=== PATIENT | female | born 1955 | race Caucasian/White ===

== ENCOUNTER → 2017-06-21 09:13 | Outpatient (REF) | payer MEDICAID, SELFPAY ==
[2017-06-21 14:00] LABS: Amphetamine/Metha Screen,Urine Negative ng/mL (<1000); Barbiturates Screen,Urine Negative ng/mL (<200); Benzodiazepines Screen,Urine Positive ng/mL (200); Cannabinoid Screen,Urine Negative ng/mL (<50); Cocaine Screen,Urine Negative ng/g (<300); Methadone Screen,Urine Negative ng/mL (<300); Opiate Screen,Urine Negative ng/mL (<300); Phencyclidine Screen,Urine Negative ng/mL (<25)
== END ==
LOC: LAB 09:13
PROVIDERS: Visit Provider Emergency Medicine
DX: Z79.899 Other long term (current) drug therapy (principal)
CPT/HCPCS: 80305

== ENCOUNTER 2017-07-26 08:38 | Emergency (ER) | payer MEDICAID, SELFPAY ==
[2017-07-26 09:06] VITALS: BP 131/79; PULSE 90; RESP 18; TEMP 36.6; O2SAT 97; BMI 31.1
--- NOTE | 2017-07-26 09:09 | HMH.EDUTC ---
[facility] [place] Disposition Clinical Impression: Sinusitis Qualifiers: Sinusitis location: other Chronicity: unspecified Qualified Code(s): J32.9 - Chronic sinusitis, unspecified Disposition: Home, Self-Care Condition on Discharge: Good Instructions: Sinusitis, Sinus Headache, DI for Sinusitis Additional Instructions: Start antibiotic. Sinus infections may take 2-3 days to notice much improvement so be sure to use conservative measures as discussed for symptoms Flonase 2 spray in each nostril daily to help with nasal congestion, sinus an ear pressure/inflammation Lots of Fluids Sleep elevated Humidifer/vaporizer Augmentin can cause GI effects. Probiotics may help to prevent these symptoms Prescriptions: Amoxicillin/Potassium Clav [Augmentin 875-125 Tablet] 1 tab PO Q12H #14 tab Fluticasone Propionate [Flonase 50mcg nasal spray 16gm] 2 spr NS DAILY #1 bottle predniSONE [Prednisone 5mg Tab Dose-Pack] 5 mg PO UD DOSE PK #21 pack Referrals: Dylan Montiel MD [Primary Care Provider] - Time of Disposition: 09:24 Medical Decision Making - Medical Records Medical records reviewed: Yes: I reviewed the patient's medical records. Vital Signs: 07/26/17 09:06 Temperature 97.8 F Temperature Source Temporal Artery Scan Pulse Rate [Right] 90 Respiratory Rate 18 Blood Pressure [Right Arm] 131/79 Blood Pressure Mean [Right Arm] 96 Blood Pressure Source [Right Arm] Automatic Cuff Blood Pressure Position [Right Arm] Sitting 02 Sat by Pulse Oximetry 97 Oxygen Delivery Method Room Air - Lab Data Lab results reviewed: Yes: I reviewed the patient's lab results. - Kris Inquiry Pt receiving controlled substance: No Kris was queried for this patient: No [facility] [place] HPI - General Stated complaint: head congested,sinus Mode of Arrival: Ambulatory Source of Information: Patient Limitations: No Limitations Description of Symptoms (Recalled from Triage Doc. by RN): sinus congestion x3 days HEENT Symptoms (Recalled from RN notes): Yes Resp Symptoms (Recalled from RN notes): No Skin Symptoms (Recalled from RN notes): No MS Symptoms (Recalled from RN notes): No Functional Status (Recalled from RN notes): N - History of Present Illness Provider Complaint: Patient state that she has been having sinus issues for 3 days that have continued to get worse State that pressure is worse on the left side and even making her teeth hurt State that she has drainage down the back of her throat and feels tender under her eyes States that she has felt feverish but not sure if she has had a fever or not - Related Data Home Medications Medication Instructions Recorded Confirmed atorvastatin 10 mg tablet 10 mg PO ONCE 06/21/17 cetirizine 10 mg tablet 10 mg PO ONCE 06/21/17 ergocalciferol (vitamin D2) 50,000 50,000 unit PO QWEEK 06/21/17 unit capsule escitalopram 10 mg tablet 10 mg PO ONCE 06/21/17 fluticasone 100 mcg-vilanterol 25 1 inh INHALATION Q24H 06/21/17 mcg/dose powder for inhalation fluticasone 50 mcg/actuation 1 inh INHALATION ONCE each 06/21/17 blister powder for inhalation lisinopril 5 mg tablet 5 mg PO ONCE 06/21/17 Tramadol HCl [Ultram Take Home 50 mg PO Q8H 07/26/17 07/26/17 Pack 50mg (10)] Previous Rx's Medication Instructions Recorded alprazolam 0.5 mg tablet 0.5 mg PO BID 30 Days #60 tab 06/21/17 temazepam 30 mg capsule 30 mg PO ONCE 30 Days #30 cap 06/25/17 Amoxicillin/Potassium Clav 1 tab PO Q12H #14 tab 07/26/17 [Augmentin 875-125 Tablet] Fluticasone Propionate [Flonase 2 spr NS DAILY #1 bottle 07/26/17 50mcg nasal spray 16gm] predniSONE [Prednisone 5mg Tab 5 mg PO UD DOSE PK #21 pack 07/26/17 Dose-Pack] Allergies Allergy/AdvReac Type Severity Reaction Status Date / Time No Known Allergies Allergy Verified 06/21/17 09:19 - Worker's Comp Is this a Worker's Comp case?: No [facility] History Medical History: Reports:: Chronic Obstructive Pulmonary Disease (COPD), Hyperlipidemia, Hype
--- NOTE | 2017-07-26 09:12 | ED_ITS ---
[facility] [place] Disposition Clinical Impression: Sinusitis Qualifiers: Sinusitis location: other Chronicity: unspecified Qualified Code(s): J32.9 - Chronic sinusitis, unspecified Disposition: Home, Self-Care Condition on Discharge: Good Instructions: Sinusitis, Sinus Headache, DI for Sinusitis Additional Instructions: Start antibiotic. Sinus infections may take 2-3 days to notice much improvement so be sure to use conservative measures as discussed for symptoms Flonase 2 spray in each nostril daily to help with nasal congestion, sinus an ear pressure/inflammation Lots of Fluids Sleep elevated Humidifer/vaporizer Augmentin can cause GI effects. Probiotics may help to prevent these symptoms Prescriptions: Amoxicillin/Potassium Clav [Augmentin 875-125 Tablet] 1 tab PO Q12H #14 tab Fluticasone Propionate [Flonase 50mcg nasal spray 16gm] 2 spr NS DAILY #1 bottle predniSONE [Prednisone 5mg Tab Dose-Pack] 5 mg PO UD DOSE PK #21 pack Referrals: Dylan Montiel MD [Primary Care Provider] - Time of Disposition: 09:24 Medical Decision Making - Medical Records Medical records reviewed: Yes: I reviewed the patient's medical records. Vital Signs: 07/26/17 09:06 Temperature 97.8 F Temperature Source Temporal Artery Scan Pulse Rate [Right] 90 Respiratory Rate 18 Blood Pressure [Right Arm] 131/79 Blood Pressure Mean [Right Arm] 96 Blood Pressure Source [Right Arm] Automatic Cuff Blood Pressure Position [Right Arm] Sitting 02 Sat by Pulse Oximetry 97 Oxygen Delivery Method Room Air - Lab Data Lab results reviewed: Yes: I reviewed the patient's lab results. - Kris Inquiry Pt receiving controlled substance: No Kris was queried for this patient: No [facility] [place] HPI - General Stated complaint: head congested,sinus Mode of Arrival: Ambulatory Source of Information: Patient Limitations: No Limitations Description of Symptoms (Recalled from Triage Doc. by RN): sinus congestion x3 days HEENT Symptoms (Recalled from RN notes): Yes Resp Symptoms (Recalled from RN notes): No Skin Symptoms (Recalled from RN notes): No MS Symptoms (Recalled from RN notes): No Functional Status (Recalled from RN notes): N - History of Present Illness Provider Complaint: Patient state that she has been having sinus issues for 3 days that have continued to get worse State that pressure is worse on the left side and even making her teeth hurt State that she has drainage down the back of her throat and feels tender under her eyes States that she has felt feverish but not sure if she has had a fever or not - Related Data Home Medications Medication Instructions Recorded Confirmed atorvastatin 10 mg tablet 10 mg PO ONCE 06/21/17 cetirizine 10 mg tablet 10 mg PO ONCE 06/21/17 ergocalciferol (vitamin D2) 50,000 50,000 unit PO QWEEK 06/21/17 unit capsule escitalopram 10 mg tablet 10 mg PO ONCE 06/21/17 fluticasone 100 mcg-vilanterol 25 1 inh INHALATION Q24H 06/21/17 mcg/dose powder for inhalation fluticasone 50 mcg/actuation 1 inh INHALATION ONCE each 06/21/17 blister powder for inhalation lisinopril 5 mg tablet 5 mg PO ONCE 06/21/17 Tramadol HCl [Ultram Take Home 50 mg PO Q8H 07/26/17 07/26/17 Pack 50mg (10)] Previous Rx's Medication Instructions Recorded alprazolam 0.5 mg tablet 0.5 mg PO BID 30 Days #60 tab 06/21/17
[2017-07-26 09:25] VITALS: BP 131/70; PULSE 88; RESP 20; TEMP 36.1
[2017-07-26 10:12] LABS: UTC Influenza A Antigen Negative (Negative); UTC Influenza B Antigen Negative (Negative)
== END 2017-07-26 09:28 | disposition home or self-care (01) ==
PROVIDERS: Emergency Provider Nurse Practitioner; Family Provider Emergency Medicine; PCP Emergency Medicine
DX: J32.9 Chronic sinusitis, unspecified (principal); E78.5 Hyperlipidemia, unspecified; I10 Essential (primary) hypertension; Z87.891 Personal history of nicotine dependence
CPT/HCPCS: 87804; 99202

== ENCOUNTER → 2017-09-17 09:45 | Outpatient (CLI) | payer MEDICAID, SELFPAY ==
[2017-09-17 13:58] LABS: Basophils % 0.4 % (0.1-2.0); Eosinophils # 0.1 K/mm3 (0.0-0.4); Eosinophils % 1.4 % (0.1-12.0); Hematocrit 44.9 % (37.0-47.0); Hemoglobin 14.4 g/dL (12.2-16.2); Lymphocytes # 1.4 K/mm3 (0.7-4.5); Lymphocytes % 24.5 K/mm3 (10-50); Mean Corpuscular HGB Conc 32.2 g/dL (31.8-35.4); Mean Corpuscular Hemoglobin 30.7 pg (27.0-31.2); Mean Corpuscular Volume 95.4 fl (81-99); Mean Platelet Volume 8.4 fl (7.4-10.4); Monocytes # 0.3 K/mm3 (0.1-1.0); Monocytes % 5.3 % (1.7-9.3); Neutrophils # 3.8 K/mm3 (1.8-7.8); Neutrophils % 68.4 % (37.0-80.0); Platelet Count 278 K/mm3 (142-424); Red Cell Distribution Width 13.1 % (11.5-17.5); White Blood Count 5.5 K/mm3 (4.8-10.8)
[2017-09-17 14:34] LABS: Alanine Aminotransferase 34 U/L (12-78); Albumin Level 3.9 gm/dL (3.4-5.0); Albumin/Globulin Ratio 1.1 (1.1-1.8); Alkaline Phosphatase 111 U/L (46-116); Anion Gap 12.8 mEq/L (5-15); Aspartate Amino Transferase 32 U/L (15-37); Bilirubin,Total 0.4 mg/dL (0.2-1.0); Blood Urea Nitrogen 16 mg/dL (7-18); Calcium 9.4 mg/dL (8.5-10.1); Carbon Dioxide 31 mmol/L (21.0-32.0); Chloride 104 mmol/L (98-107); Chol/HDL Ratio 3.2 (1-3.5); Cholesterol 175 mg/dL (140-200); Creatinine,Serum 0.63 mg/dL (0.55-1.02); Estimated Glomerular Filt Rate 95 ml/min (>60); Free T4 (Free Thyroxine) 1.05 ng/dl (0.76-1.46); GFR (African American) 115 ML/MIN (>60); Globulin 3.4 gm/dl (1.3-3.2); Glucose 97 mg/dL (74-106); HDL Cholesterol 54 mg/dL (29-89); LDL Cholesterol 99 mg/dL (0-130); Potassium 4.8 mmoL/L (3.5-5.1); Sodium 143 mmol/L (136-145); Thyroid Stimulating Hormone 1.78 uIU/ml (0.358-3.740); Total Protein,Serum 7.3 gm/dL (6.4-8.2); Triglycerides 108 mg/dL (30-200); VLDL Cholesterol 22 mg/dL (0-40)
== END ==
PROVIDERS: Visit Provider Emergency Medicine
DX: R53.83 Other fatigue (principal)
CPT/HCPCS: 80053; 80061; 82652; 84439; 84443; 85025

== ENCOUNTER → 2017-09-23 09:58 | Outpatient (CLI) | payer MEDICAID, SELFPAY ==
--- NOTE | 2017-09-23 10:03 | US_ITS ---
US Arterial Ankle Brachial Ind ITS.REASON: claudication bilateral leg pain, left knee pain, previous smoker, claudication, hypertension ORDERING PHYSICIAN: Maynor Rowell MD PATIENT AGE: 62 years TECHNIQUE: Segmental pressures obtained of both right and left leg. These are compared to brachial blood pressure to yield index at each level sampled including summary GIANFRANCO. The data sheets from the procedure are available in PACS FINDINGS Rest study only performed today No prior studies available for comparison. Blood pressures reported are in millimeters mercury. RIGHT LEG GIANFRANCO = 1.0. Right TBI is 0.8 Brachial BP: 126 Thigh BP: 130 Calf BP: 144 Ankle PT: 142 Ankle DP : 140 Digit =96 LEFT LEG GIANFRANCO = 1.1 Left TBI 0.8 Brachial BPD: 126 Thigh BP: 133 Calf BP: 145 Ankle PT:142 Ankle DP: 123 Digit = 96 Pulses and waveforms: Normal IMPRESSION: The ABIs as reported above are within normal limits. Waveforms and pulses are also unremarkable.
== END ==
PROVIDERS: Family Provider Emergency Medicine; PCP Emergency Medicine; Visit Provider Internal Medicine
DX: R06.00 Dyspnea, unspecified (principal); R60.9 Edema, unspecified; I73.9 Peripheral vascular disease, unspecified; M79.604 Pain in right leg; M79.605 Pain in left leg
CPT/HCPCS: 93922

== ENCOUNTER → 2017-12-14 08:58 | Outpatient (REF) | payer MEDICAID, SELFPAY ==
[2017-12-14 13:54] LABS: Amphetamine/Metha Screen,Urine Negative ng/mL (<1000); Barbiturates Screen,Urine Negative ng/mL (<200); Benzodiazepines Screen,Urine Positive ng/mL (<200); Cannabinoid Screen,Urine Negative ng/mL (<50); Cocaine Screen,Urine Negative ng/mL (<300); Methadone Screen,Urine Negative ng/mL (<300); Opiate Screen,Urine Negative ng/mL (<300); Phencyclidine Screen,Urine Negative ng/mL (<25)
== END ==
LOC: LAB 08:58
PROVIDERS: Visit Provider Emergency Medicine
DX: Z79.899 Other long term (current) drug therapy (principal)
CPT/HCPCS: 80305

== ENCOUNTER → 2018-01-25 08:53 | Outpatient (REF) | payer MEDICAID, SELFPAY ==
[2018-01-25 14:13] LABS: C-Reactive Protein 0.9 mg/L (0.0-0.9)
[2018-01-25 14:36] LABS: Erythrocyte Sedimentation Rate 63 mm/hr (0-30)
[2018-01-26 11:00] LABS: RA Latex Turbid. 13.2 IU/mL (0.0-13.9)
[2018-01-26 13:12] LABS: Anti-Jo-1 <0.2 AI (0.0-0.9); Anti-Smith Antibody <0.2 AI (0.0-0.9); Antichromatin Antibodies <0.2 AI (0.0-0.9); Antiscleroderma-70 Antibodies <0.2 AI (0.0-0.9); RNP Antibodies <0.2 AI (0.0-0.9); Sjogren's Anti-SS-A <0.2 AI (0.0-0.9); Sjogren's Anti-SS-B <0.2 AI (0.0-0.9)
[2018-01-28 08:24] LABS: Anti-Centromere B Antibodies <0.2 AI (0.0-0.9); Anti-DNA (DS) Ab Qn 1 IU/mL (0-9)
[2018-01-28 08:25] LABS: Anti-Cyclic Citrullinated Pept 9 units (0-19)
== END ==
LOC: LAB 08:53
PROVIDERS: Visit Provider Nurse Practitioner Family
DX: M79.604 Pain in right leg (principal); M79.605 Pain in left leg; M79.671 Pain in right foot; M79.672 Pain in left foot
CPT/HCPCS: 85651; 86140; 86200; 86225; 86235; 86431

== ENCOUNTER → 2018-03-15 13:58 | Outpatient (REF) | payer MEDICAID, SELFPAY ==
[2018-03-15 19:21] LABS: Amphetamine/Metha Screen,Urine Negative ng/mL (<1000); Barbiturates Screen,Urine Negative ng/mL (<200); Benzodiazepines Screen,Urine Positive ng/mL (<200); Cannabinoid Screen,Urine Positive ng/mL (<50); Cocaine Screen,Urine Negative ng/mL (<300); Methadone Screen,Urine Negative ng/mL (<300); Opiate Screen,Urine Negative ng/mL (<300); Phencyclidine Screen,Urine Negative ng/mL (<25)
== END ==
LOC: LAB 13:58
PROVIDERS: Visit Provider Emergency Medicine
DX: Z79.899 Other long term (current) drug therapy (principal)
CPT/HCPCS: 80305

== ENCOUNTER → 2018-03-30 07:51 | Outpatient (CLI) | payer MEDICAID, SELFPAY ==
[2018-03-30 08:36] LABS: Anion Gap 9.8 mEq/L (5-15); Blood Urea Nitrogen 14 mg/dL (7-18); Calcium 9.2 mg/dL (8.5-10.1); Carbon Dioxide 34 mmol/L (21.0-32.0); Chloride 102 mmol/L (98-107); Estimated Glomerular Filt Rate 84 ml/min (>60); GFR (African American) 102 ML/MIN (>60); Glucose 114 mg/dL (74-106); Potassium 4.8 mmoL/L (3.5-5.1); Sodium 141 mmol/L (136-145)
== END ==
PROVIDERS: PCP Emergency Medicine; Visit Provider Internal Medicine
DX: E78.5 Hyperlipidemia, unspecified (principal); I10 Essential (primary) hypertension; R25.2 Cramp and spasm
CPT/HCPCS: 36415; 80048

== ENCOUNTER → 2018-06-24 14:49 | Outpatient (CLI) | payer MEDICAID, SELFPAY ==
[2018-06-24 19:46] LABS: Amphetamine/Metha Screen,Urine Negative ng/mL (<1000); Barbiturates Screen,Urine Negative ng/mL (<200); Benzodiazepines Screen,Urine Positive ng/mL (<200); Cannabinoid Screen,Urine Negative ng/mL (<50); Cocaine Screen,Urine Negative ng/mL (<300); Methadone Screen,Urine Negative ng/mL (<300); Opiate Screen,Urine Negative ng/mL (<300); Phencyclidine Screen,Urine Negative ng/mL (<25)
== END ==
PROVIDERS: Visit Provider Emergency Medicine
DX: Z79.899 Other long term (current) drug therapy (principal)
CPT/HCPCS: 80305

== ENCOUNTER → 2018-08-29 07:52 | Outpatient (CLI) | payer MEDICAID, SELFPAY ==
--- NOTE | 2018-08-29 08:19 | XR_ITS ---
XR knee LT 3V HISTORY: Pain and swelling ITS.REASON: pain ORDERING PHYSICIAN: Lauryn Teran PATIENT AGE: 62 years COMPARISON: 01/13/2007 FINDINGS: There are [id number] osteoarthritic changes of the medial compartment and patellofemoral joint. These findings have shown some progression compared to the previous exam. No fracture or dislocation. No lytic or blastic change. There is some flattening of the medial femoral condyle articular surface which has developed since the previous exam. 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
[2018-08-29 08:23] LABS: Basophils % 0.5 % (0.1-2.0); Eosinophils # 0.1 K/mm3 (0.0-0.4); Eosinophils % 1.5 % (0.1-12.0); Hematocrit 43.2 % (37.0-47.0); Lymphocytes # 1.3 K/mm3 (0.7-4.5); Lymphocytes % 21.6 % (10-50); Mean Corpuscular HGB Conc 32.3 g/dL (31.8-35.4); Mean Corpuscular Hemoglobin 30.5 pg (27.0-31.2); Mean Corpuscular Volume 94.4 fl (81-99); Mean Platelet Volume 7.8 fl (7.4-10.4); Monocytes # 0.3 K/mm3 (0.1-1.0); Monocytes % 5.4 % (1.7-9.3); Neutrophils # 4.3 K/mm3 (1.8-7.8); Neutrophils % 71.1 % (37.0-80.0); Platelet Count 239 K/mm3 (142-424); Red Blood Count 4.58 M/mm3 (4.20-5.40); Red Cell Distribution Width 13.2 % (11.5-17.5)
[2018-08-29 09:48] LABS: Alanine Aminotransferase 27 U/L (12-78); Albumin Level 3.6 gm/dL (3.4-5.0); Albumin/Globulin Ratio 1.1 (1.1-1.8); Alkaline Phosphatase 86 U/L (46-116); Anion Gap 12.5 mEq/L (5-15); Aspartate Amino Transferase 21 U/L (15-37); Bilirubin,Total 0.4 mg/dL (0.2-1.0); Blood Urea Nitrogen 16 mg/dL (7-18); Calcium 8.8 mg/dL (8.5-10.1); Carbon Dioxide 32 mmol/L (21.0-32.0); Chloride 103 mmol/L (98-107); Chol/HDL Ratio 2.9 (1-3.5); Cholesterol 169 mg/dL (140-200); Creatinine,Serum 0.63 mg/dL (0.55-1.02); Estimated Glomerular Filt Rate 95 ml/min (>60); GFR (African American) 115 ML/MIN (>60); Globulin 3.2 gm/dl (1.3-3.2); Glucose 104 mg/dL (74-106); HDL Cholesterol 59 mg/dL (29-89); LDL Cholesterol 92 mg/dL (0-130); Potassium 4.5 mmoL/L (3.5-5.1); Sodium 143 mmol/L (136-145); T4 (Thyroxine) 8.8 ug/dl (4.7-13.3); Thyroid Stimulating Hormone 2.38 uIU/ml (0.358-3.740); Total Protein,Serum 6.8 gm/dL (6.4-8.2); Triglycerides 91 mg/dL (30-200); VLDL Cholesterol 18 mg/dL (0-40)
[2018-08-30 13:11] LABS: Vitamin D 25 Hydroxy 54.7 ng/mL (30.0-100.0)
== END ==
PROVIDERS: PCP Emergency Medicine; Visit Provider Nurse Practitioner Family
DX: R53.83 Other fatigue (principal); M25.562 Pain in left knee
CPT/HCPCS: 36415; 73562; 80053; 80061; 82652; 84436; 84443; 85025

== ENCOUNTER → 2018-09-15 08:19 | Outpatient (CLI) | payer MEDICARE, OTHER, SELFPAY ==
--- NOTE | 2018-09-15 08:23 | MM_ITS ---
MM Dig screening mamm BI w/CAD ORDERING PHYSICIAN : Lauryn Teran PATIENT AGE: 63 years GENDER: Female COMPARISON: November 2016, 2015September 2014 INDICATION: ITS annual screening mammogram. No hormones. No new complaints. Previous cyst aspiration and biopsy left breast. Noncontributory family history. TECHNIQUE: Standard CC and MLO images were obtained. R2 CAD reviewed. FINDINGS: Very heterogeneous, moderately dense breast with numerous scattered fairly dense calcifications bilaterally. Pattern slightly decreases sensitivity of mammography but appear stable. Similar pattern is been seen on previous studies with no new dominant mass nor discrete new significant calcification. The overall architecture and heterogeneous fibroglandular pattern shows no significant change. The calcifications appear similar and most likely benign patterns given the scattered dense calcification. RIGHT BREAST:No new findings of significant concern. Follow-up in one year. LEFT BREAST:No new findings of significant concern . metallic clip marker from previous stereotactic biopsy is noted at the central breast, retroareolar region. IMPRESSION: Moderate Dense heterogeneous breast No significant change since previous studies. No new areas of significant concern.. . Follow-up in one year recommended. BI-RADS Category: 2 Benign Finding(s) RECOMMENDED FOLLOW-UP: 1YR 1 YEAR FOLLOW-UP (A letter has been sent to the patient regarding results of the study.)
--- NOTE | 2018-09-15 12:23 | XR_ITS ---
XR knee LT 4V HISTORY: Knee pain ITS.REASON: 4 views weightbearing ORDERING PHYSICIAN: Lauryn Teran PATIENT AGE: 63 years COMPARISON: 08/29/2018 FINDINGS: There are moderate to severe osteoarthritic changes of the medial compartment and patellofemoral joint. No fracture or dislocation. No lytic or blastic change. Osteophyte formation is noted involving all 3 compartments. There is some subcortical lucency of the medial femoral condyle in a subarticular region possibly due to osteochondral defect which can be confirmed with MRI or CT. IMPRESSION: 1. Moderate to severe osteoarthritis with subchondral lucency of the medial femoral condyle which could be due to a subarticular cyst or osteochondral defect. MRI or CT may be of further value.
== END ==
PROVIDERS: PCP Emergency Medicine; Visit Provider Nurse Practitioner Family
DX: Z12.31 Encounter for screening mammogram for malignant neoplasm of breast (principal); M25.562 Pain in left knee
CPT/HCPCS: 73564; 77067

== ENCOUNTER → 2018-09-21 13:58 | Outpatient (CLI) | payer MEDICARE, SELFPAY ==
[2018-09-21 16:29] LABS: Amphetamine/Metha Screen,Urine Negative ng/mL (<1000); Barbiturates Screen,Urine Negative ng/mL (<200); Benzodiazepines Screen,Urine Positive ng/mL (<200); Cannabinoid Screen,Urine Negative ng/mL (<50); Cocaine Screen,Urine Negative ng/mL (<300); Methadone Screen,Urine Negative ng/mL (<300); Opiate Screen,Urine Negative ng/mL (<300); Phencyclidine Screen,Urine Negative ng/mL (<25)
== END ==
PROVIDERS: Visit Provider Emergency Medicine
DX: Z79.899 Other long term (current) drug therapy (principal)
CPT/HCPCS: 80305

== ENCOUNTER → 2018-10-04 08:20 | Outpatient (CLI) | payer MEDICARE, OTHER, SELFPAY ==
--- NOTE | 2018-10-04 08:22 | CA_ITS ---
PROCEDURE: 2-D M-mode and color Doppler study INDICATIONS FOR THE TEST: Chest pain COPD+ Heart Murmur Tobacco Smokingex Palpitations Fatigue Syncope Edema Hypertension+Diabetes Mellitus Rheumatic Fever SOB THOMAS+Obesity+Hyperlipidemia+ Family History HD Additional History PATIENT INFORMATION HEIGHT: 60 WEIGHT:184 GENDER: Female B/P:122/72 2-D/M-MODE INTERPRETATION: 2-D MEASUREMENTS OBSERVED VALUES IN CMS Right Ventricular Dimension (RVDd) 2.0 Interventricular Septum (Thickness)(IVsd) 0.7 Left Ventricular Internal Dimensions(LVIDd) 5.4 Left Ventricular Posterior Wall (Thickness)(LVPWd) 0.7 Aortic Root 2.4 Aortic Cusp Separation Left Atrial Dimensions (LAD) 3.9 2D 1. Left atrium is normal size, left ventricle is normal size, there is no concentric left ventricular hypertrophy, visually estimated ejection fraction 55% with no regional wall motion abnormality. 2. The right atrium and right ventricle are normal size and contractility. 3. The aortic valve is minimally thickened fibrosed. 4. The mitral and tricuspid valve leaflets are minimally thickened. 5. The pulmonic valve is poorly visualized. 6. No significant pericardial effusion noted. DOPPLER INTERROGATION: Doppler interrogation of the aortic, mitral and tricuspid valvular presence of mild mitral and tricuspid regurgitation, tricuspid regurgitation jet velocity is inadequate for calculation of the right ventricular systolic pressure, diastolic parameters are within normal range. CONCLUSION: 1. Normal left ventricular size, preserved left ventricular systolic function, visually estimated ejection fraction 55% with no regional wall motion abnormality, diastolic parameters are within normal range. 2. Mild mitral and tricuspid regurgitation 3. No significant pericardial effusion noted.
== END ==
PROVIDERS: PCP Emergency Medicine; Visit Provider Urology
DX: R06.09 Other forms of dyspnea (principal)
CPT/HCPCS: 93306

== ENCOUNTER → 2018-10-04 08:54 | Outpatient (POV) | payer MEDICARE, OTHER, SELFPAY | PROVIDERS: Visit Provider Internal Medicine | DX: Z00.00 Encounter for general adult medical examination without abnormal findings (principal) ==

== ENCOUNTER → 2018-12-21 14:22 | Outpatient (CLI) | payer MEDICARE, MEDICAID, SELFPAY ==
[2018-12-21 14:59] LABS: Amphetamine/Metha Screen,Urine Negative ng/mL (<1000); Barbiturates Screen,Urine Negative ng/mL (<200); Benzodiazepines Screen,Urine Positive ng/mL (<200); Cannabinoid Screen,Urine Negative ng/mL (<50); Cocaine Screen,Urine Negative ng/mL (<300); Methadone Screen,Urine Negative ng/mL (<300); Opiate Screen,Urine Negative ng/mL (<300); Phencyclidine Screen,Urine Negative ng/mL (<25)
== END ==
PROVIDERS: Visit Provider Emergency Medicine
DX: Z79.899 Other long term (current) drug therapy (principal)
CPT/HCPCS: 80305

== ENCOUNTER → 2019-03-22 14:18 | Outpatient (CLI) | payer MEDICARE, MEDICAID, SELFPAY ==
[2019-03-22 20:18] LABS: Amphetamine/Metha Screen,Urine Negative ng/mL (<1000); Barbiturates Screen,Urine Negative ng/mL (<200); Benzodiazepines Screen,Urine Positive ng/mL (<200); Cannabinoid Screen,Urine Negative ng/mL (<50); Cocaine Screen,Urine Negative ng/mL (<300); Methadone Screen,Urine Negative ng/mL (<300); Opiate Screen,Urine Negative ng/mL (<300); Phencyclidine Screen,Urine Negative ng/mL (<25)
== END ==
PROVIDERS: Visit Provider Emergency Medicine
DX: Z79.899 Other long term (current) drug therapy (principal)
CPT/HCPCS: 80305

== ENCOUNTER → 2019-06-20 14:23 | Outpatient (CLI) | payer MEDICARE, MEDICAID, SELFPAY ==
[2019-06-20 16:17] LABS: Amphetamine/Metha Screen,Urine Negative ng/mL (<1000); Barbiturates Screen,Urine Negative ng/mL (<200); Benzodiazepines Screen,Urine Positive ng/mL (<200); Cannabinoid Screen,Urine Negative ng/mL (<50); Cocaine Screen,Urine Negative ng/mL (<300); Methadone Screen,Urine Negative ng/mL (<300); Opiate Screen,Urine Negative ng/mL (<300); Phencyclidine Screen,Urine Negative ng/mL (<25)
== END ==
PROVIDERS: Visit Provider Emergency Medicine
DX: Z79.899 Other long term (current) drug therapy (principal)
CPT/HCPCS: 80305

== ENCOUNTER → 2019-10-16 13:28 | Outpatient (CLI) | payer MEDICARE, MEDICAID, SELFPAY ==
[2019-10-16 15:00] LABS: Basophils % 0.5 % (0.1-2.0); Eosinophils # 0.1 K/mm3 (0.0-0.4); Eosinophils % 1.7 % (0.1-12.0); Hematocrit 43.6 % (37.0-47.0); Hemoglobin 13.8 g/dL (12.2-16.2); Lymphocytes # 1.5 K/mm3 (0.7-4.5); Lymphocytes % 23.7 % (10-50); Mean Corpuscular HGB Conc 31.6 g/dL (31.8-35.4); Mean Corpuscular Hemoglobin 29.5 pg (27.0-31.2); Mean Corpuscular Volume 93.6 fl (81-99); Mean Platelet Volume 8.9 fl (7.4-10.4); Monocytes # 0.4 K/mm3 (0.1-1.0); Monocytes % 6.2 % (1.7-9.3); Neutrophils # 4.3 K/mm3 (1.8-7.8); Neutrophils % 67.9 % (37.0-80.0); Platelet Count 267 K/mm3 (142-424); Red Blood Count 4.66 M/mm3 (4.20-5.40); Red Cell Distribution Width 13.5 % (11.5-17.5); White Blood Count 6.4 K/mm3 (4.8-10.8)
[2019-10-16 15:10] LABS: Chloride 98 mmol/L (98-107); Potassium 4.6 mmoL/L (3.5-5.1); Sodium 135 mmol/L (136-145)
[2019-10-16 15:12] LABS: Blood Urea Nitrogen 13 mg/dl (7-17); Estimated Glomerular Filt Rate 100 ml/min (>60); GFR (African American) 121 ML/MIN (>60)
[2019-10-16 15:13] LABS: Alanine Aminotransferase 23 U/L (12-78); Albumin Level 4.3 g/dl (3.5-5.0); Albumin/Globulin Ratio 1.7 (1.1-1.8); Alkaline Phosphatase 82 U/L (38-126); Anion Gap 7.6 mEq/L (5-15); Aspartate Amino Transferase 32 U/L (14-36); Bilirubin,Total 0.3 mg/dl (0.2-1.3); Calcium 9.1 mg/dl (8.4-10.2); Carbon Dioxide 34 mmol/L (22.0-30.0); Cholesterol 146 mg/dl (140-200); Globulin 2.6 g/dL (1.3-3.2); Glucose 113 mg/dl (74-100); Total Protein,Serum 6.9 g/dl (6.3-8.2); Triglycerides 108 mg/dl (30-150); VLDL Cholesterol 22 mg/dL (0-40)
[2019-10-16 15:14] LABS: Chol/HDL Ratio 2.6 (1-3.5); HDL Cholesterol 57 mg/dl (40-60)
[2019-10-16 15:25] LABS: Direct LDL Cholesterol 88.24 mg/dL (100-129)
[2019-10-16 15:31] LABS: T4 (Thyroxine) 10.4 ug/dl (5.53-11.0)
[2019-10-16 15:44] LABS: Thyroid Stimulating Hormone 2.24 uIU/mL (0.465-4.68)
[2019-10-17 15:22] LABS: Vitamin D 25 Hydroxy 39.8 ng/mL (30.0-100.0)
== END ==
PROVIDERS: Visit Provider Emergency Medicine
DX: F41.9 Anxiety disorder, unspecified (principal); G47.00 Insomnia, unspecified; M19.90 Unspecified osteoarthritis, unspecified site; E66.9 Obesity, unspecified
CPT/HCPCS: 80053; 80061; 82652; 84436; 84443; 85025

== ENCOUNTER → 2019-11-13 09:19 | Outpatient (CLI) | payer MEDICARE, MEDICAID, OTHER, SELFPAY ==
[2019-11-13 13:17] LABS: Coronavirus 19 IgG Antibody Negative (Negative); Coronavirus 19 IgM Antibody Negative (Negative)
== END ==
PROVIDERS: Visit Provider Specialist
DX: Z03.818 Encounter for observation for suspected exposure to other biological agents ruled out (principal)
CPT/HCPCS: 36415; 86328

== ENCOUNTER → 2019-11-13 20:09 | Outpatient (CLI) | payer MEDICARE, MEDICAID, OTHER, SELFPAY | PROVIDERS: PCP Emergency Medicine; Visit Provider Emergency Medicine | DX: G47.33 Obstructive sleep apnea (adult) (pediatric) (principal); Z01.818 Encounter for other preprocedural examination; I10 Essential (primary) hypertension; R40.0 Somnolence; R06.83 Snoring | CPT/HCPCS: 36415; 86328; 95810 ==

== ENCOUNTER → 2019-12-06 11:48 | Outpatient (CLI) | payer MEDICARE, MEDICAID, OTHER, SELFPAY ==
[2019-12-06 15:18] LABS: Ferritin 46.2 ng/ml (11.1-264)
== END ==
PROVIDERS: Visit Provider Nurse Practitioner Family
DX: E83.10 Disorder of iron metabolism, unspecified (principal); G25.81 Restless legs syndrome
CPT/HCPCS: 36415; 82728

== ENCOUNTER → 2019-12-14 08:01 | Outpatient (CLI) | payer MEDICARE, OTHER, MEDICAID, SELFPAY ==
--- NOTE | 2019-12-14 08:02 | XR_ITS ---
PROCEDURE: XR CHEST 2V CLINICAL HISTORY: low o2 Low O2, former smoker COMPARISON: CXR CHEST(2 VIEWS-NOT PORTABLE) from 01/24/2014 FINDINGS: The cardiomediastinal silhouette and pulmonary vascularity are within normal limits. There is elevated right hemidiaphragm with bowel interposition on the right. Right basilar atelectasis with trace right effusion also noted. Surgical anchor in the right proximal humerus IMPRESSION: Elevated right hemidiaphragm with right basilar atelectasis and trace right effusion Dictated by: Contreras Pittman MD 12/14/2019 14:52 Electronically signed by Contreras Pittman MD in [place] 12/14/2019 14:52
== END ==
PROVIDERS: PCP Nurse Practitioner Family; Visit Provider Nurse Practitioner Family
DX: J44.9 Chronic obstructive pulmonary disease, unspecified (principal)
CPT/HCPCS: 71046

== ENCOUNTER → 2019-12-20 09:36 | Outpatient (CLI) | payer MEDICARE, OTHER, MEDICAID, SELFPAY ==
[2019-12-20 10:40] VITALS: PULSE 105; PULSE 107
[2019-12-20 17:23] LABS: Coronavirus 19 IgG Antibody Negative (Negative); Coronavirus 19 IgM Antibody Negative (Negative)
== END ==
PROVIDERS: PCP Nurse Practitioner Family; Visit Provider Nurse Practitioner Family
DX: G47.34 Idiopathic sleep related nonobstructive alveolar hypoventilation (principal); Z03.818 Encounter for observation for suspected exposure to other biological agents ruled out; R06.02 Shortness of breath; J44.9 Chronic obstructive pulmonary disease, unspecified
CPT/HCPCS: 36415; 86328; 94060; 94618; 94640; 94727; 94729

== ENCOUNTER → 2019-12-21 20:01 | Outpatient (CLI) | payer MEDICARE, OTHER, MEDICAID, SELFPAY | PROVIDERS: PCP Emergency Medicine; Visit Provider Nurse Practitioner Family | DX: Z01.818 Encounter for other preprocedural examination (principal); G47.33 Obstructive sleep apnea (adult) (pediatric) | CPT/HCPCS: 95811 ==

== ENCOUNTER → 2020-01-25 12:41 | Outpatient (CLI) | payer MEDICARE, OTHER, MEDICAID, SELFPAY ==
--- NOTE | 2020-01-25 12:46 | MM_ITS ---
PROCEDURE: MM DIG SCREENING MAMM BI W/CAD Digital Breast Tomosynthesis Included CLINICAL INDICATION: screening There is no personal or family history of breast cancer. There has been a previous biopsy left breast for benign disease. COMPARISON: MG [facility]B DIG MAMM-SCREEN DELVIN from 11/06/2015 MG DMSB DIG MAMM-SCREEN DELVIN W/CAD from 11/10/2016 MG [facility] MM Dig screening mamm BI w/CAD from 09/15/2018 TECHNIQUE: Standard CC and MLO images and 3D Tomosynthesis was obtained. R2 CAD reviewed. FINDINGS: There is a diffusely dense and heterogenic parenchymal pattern bilaterally. Hosea images are most helpful in this type of dense breast parenchyma. Scattered benign-appearing micro and macrocalcifications are seen in each breast. There is a biopsy clip just deep to the nipple left breast. There is no suspicious lesion in either breast and no suspicious microcalcifications. IMPRESSION: Stable dense and heterogenic parenchymal pattern BI-RAD Category: 2 Benign Finding(s) FOLLOW-UP: 1YR 1 Year Follow-up (A letter has been sent to the patient regarding results of the study.) Dictated by: Dr. Tyler Wells MD 01/26/2020 10:28 Dr. Tyler Wells MD in [place] 01/26/2020 10:28
== END ==
PROVIDERS: PCP Emergency Medicine; Visit Provider Emergency Medicine
DX: Z12.31 Encounter for screening mammogram for malignant neoplasm of breast (principal)
CPT/HCPCS: 77063; 77067

== ENCOUNTER → 2020-02-13 10:27 | Outpatient (CLI) | payer MEDICARE, OTHER, MEDICAID, SELFPAY | PROVIDERS: PCP Emergency Medicine; Visit Provider Nurse Practitioner Family | DX: G47.33 Obstructive sleep apnea (adult) (pediatric) (principal); G47.34 Idiopathic sleep related nonobstructive alveolar hypoventilation | CPT/HCPCS: 94762 ==

== ENCOUNTER → 2020-04-03 07:47 | Outpatient (CLI) | payer MEDICARE, OTHER, MEDICAID, SELFPAY ==
--- NOTE | 2020-04-03 07:48 | CT_ITS ---
PROCEDURE: CT CHEST WO CON CLINICAL INDICATION: ILD, shortness of breath copd-- high res- > no priors COMPARISON: CR XR CHEST 2V from 12/14/2019 TECHNIQUE: Axial images obtained with sagittal and coronal reformats. All CT scans at the facility use one or more dose reduction, viz: automated exposure control, ma/kV adjustment per patient size (including targeted exams where dose is matched to indication, i.e. head), or iterative reconstruction technique. Inspiration, expiration, and prone images are obtained without contrast. FINDINGS: There is a 3.4 by 2.9 by 2 cm mass along the lower pole of the thyroid gland on the left. Coronary artery calcifications are present. There is a large anterior diaphragmatic hernia which is slightly toward the right. The hernia contains intraperitoneal fat as well as much of the ascending colon hepatic flexure and transverse colon. The hernia contents extends to the right. There is resultant atelectatic changes in the right lower lobe. There is linear density in the right lower lobe extending from the superior aspect of the major fissure inferiorly to the lung base consistent with atelectatic change. The hernia contents takes up approximately 1/2 of the total volume of the right hemithorax. There is calcified granuloma in the left upper lobe. No inter interlobular septal thickening. No significant air trapping. The No effusions or infiltrates. No acute bony anomalies. Upper abdominal images show mild haziness of the central mesenteric fat with slightly prominent mesenteric lymph nodes nonspecific but could be seen with mesenteric adenitis. IMPRESSION: There is a large ventral abdominal hernia with hernia contents extending to the right lower hemithorax occupying approximately 1/2 volume of the right hemithorax with right-sided atelectatic change. The hernia contains colon and peritoneal fat. No evidence of interstitial lung disease. 3.4 cm left thyroid mass. Consider ultrasound for further evaluation. Dictated by: Contreras Pittman MD 04/08/2020 06:00 Contreras Pittman MD in [place] 04/08/2020 06:00
== END ==
PROVIDERS: PCP Emergency Medicine; Visit Provider Internal Medicine Pulmonary Disease
DX: J98.4 Other disorders of lung (principal); R06.00 Dyspnea, unspecified
CPT/HCPCS: 71250

== ENCOUNTER → 2020-04-08 07:45 | Outpatient (CLI) | payer MEDICARE, OTHER, MEDICAID, SELFPAY ==
--- NOTE | 2020-04-08 | CA_ITS ---
APPROVED REPORT Exam: Pharmacologic Technologist: Mey Nettles Ht: 5 ft 1 in Wt: 180 lbs BSA: 1.81 m2 HR: 96 bpm BP: 152/82 mmHg Indications: Chest Pain, Shortness of Breath Medical History Medications: Amlodipine,,,,, Lisinopril,,,,, Alprazolam,,,,, Atorvastatin,,,,, Iron,,,,, Citalopram,,,,, Ropinirole,,,,, Albuterol,,,,, Tramadol,,,,, BisOPROLOL,,,,, FluTICASONE,,,,, CetIRIZINE,,,,, Stress Test Details Test: LEXISCAN HR Resting HR: 88 bpm Max Heart Rate (APMHR): 154 bpm Max HR Achieved: 114 bpm Target HR (85% APMHR): 130 bpm % of APMHR: 74 Recovery HR: 107 bpm BP Resting BP: 152/82 mmHg Max BP: 184/85 mmHg Recovery BP: 168.0/81.0 mmHg ECG Clinical Reason for Termination: Completed Protocol Exercise duration: 04:00 min Highest Stage Achieved: Stress ECG Conclusion Resting ECG: Normal sinus rhythm Symptoms: None Arrhythmias/Ectopy: none ST-T Segment Changes: <1.[address] segment depression inferiorly. Conclusion: Non-diagnostic lexiscan stress test. Patient received the infusion per protocol without chest pain or arrhythmias. Less than 1.[address] segment changes noted inferiorly. See the nuclear report for further information. Test Summary REST . . . . . . . Resting REST 08:16 . . 88 . 152/ 82 . . Stage 1 . . . . . . . Myoview Injected Stage 1 01:00 . . 109 . . . . Stage 2 01:00 . . 112 . 173/ 85 . . Stage 3 01:00 . . 110 . 168/ 82 . . Stage 4 01:00 . . 109 . 170/ 77 . Stop exercise at 04:00 RECOVERY 01:00 . . 108 . . . . RECOVERY 02:00 . . 113 . . . . RECOVERY 03:00 . . 109 . 184/ 85 . . RECOVERY 04:00 . . 107 . 184/ 85 . . RECOVERY 05:00 . . 106 . 168/ 81 . . RECOVERY 05:17 . . 108 . 168/ 81 . . Electronically signed by : Carlitos Rojas, 04/09/2020 05:22:47
--- NOTE | 2020-04-08 07:46 | NM_ITS ---
APPROVED REPORT Exam: Nuclear Stress Test Indication: Chest pain, SOB, HTN, High cholesterol, Family history Patient Location: Outpatient Stress Tech: Mey Nettles [place] Tech:Jennifer Whlaey, ARRT, RT (R)(N) Ht: 5 ft 0 in Wt: 180 lbs Bra Size: B HR: 96 bpm BP: 152/82 mmHg BSA: 1.78 m2 History: Chest pain, SOB, HTN, High cholesterol, Family history Procedure: Patient received a 0.4 mg of intravenous Lexiscan, resting heart rate 96 bpm, resting blood pressure 152/82 mmHg, with Lexiscan maximum heart rate achived was 111 bpm which is Less than 85 % of the maximum predicted heart rate and blood pressure was 173/85 mmHg. With Lexiscan, patient denied any complaint of chest pain. Electrocardiogram Resting electrocardiogram showed sinus rhythm, with Lexiscan there is less than 1.[address] segment depression noted from the baseline EKG. The EKG portion of the Lexiscan Myoview is nondiagnostic. Cardiac Stress and Resting SPECT Images: Cardiac Stress and Resting SPECT images were obtained using technetium 99m Myoview 31.3 mCi stress and 9.85 mCi at rest. Gated SPECT for analysis of segmental wall motion and calculation of the ejection fraction also done. Cardiac stress and resting SPECT images show uniform myocardial activity without segmental perfusion abnormality, computer derived ejection fraction is 68% with no regional wall motion abnormality, right ventricle is normal size and contractility. Conclusion: 1. The EKG portion of the Lexiscan Myoview is nondiagnostic. 2. No scintigraphic evidence of reversible ischemia seen, computer derived ejection fraction 68% with no regional wall motion abnormality, right ventricle is normal size and contractility. 3. Normal Lexiscan Myoview study. Electronically signed by : Carlitos Rojas, 04/09/2020 05:30:38
--- NOTE | 2020-04-08 09:41 | CA_ITS ---
APPROVED REPORT EXAM: Comprehensive 2D, Doppler, and color-flow Echocardiogram Calculating Machine Operator: Leslie Bryson RDCS Ht: 5 ft 1 in Wt: 187lbs BSA: 1.84 BP: 167/85 mmHg Indications: CP SOA COPD EX SMOKER HTN THOMAS HLP 2D Dimensions LVOT 1.81 cm (M/F) 1.5-2.5 M-Mode Dimensions RVDd 2.98 cm (0.9-2.6) LA Diam 3.31 cm (1.9-4.0) LVDd 4.27 cm (3.5-5.7) Ao Diam 2.83 cm (2.0-3.7) LVDs 3.14 cm (3.5-5.7) IVSd 0.89 cm (0.6-1.1) PWd 0.97 cm (0.6-1.1) EF (Teich) 52.10% FS 26.50% EDV (Teich) 81.70 mL ESV (Teich) 39.10 mL LV Diastology E Decel Time 103.00 (160-240 msec) E/A Ratio 0.6 MED E' 7.00 (< 7 cm/sec) E'/MED E' Ratio 6.84 (>14) LAT E' 6.20 (<10 cm/sec) E/LAT E' Ratio 7.73 (>14) Mitral Valve MV E Max Chalo. 48.00 (40-130 cm/s) MV A Velocity 82.00 (40-130 cm/s) E/A Ratio 0.58 MV Decel. Time 103.00 (160-240 ms) MV PHT 30.00 ms Left Ventricle Left atrium is mildly enlarged, left ventricle is normal size, mild concentric left ventricular hypertrophy, visually estimated ejection fraction 55% with no regional wall motion abnormality, grade 1 diastolic dysfunction seen without tissue Doppler evidence of raise left atrial pressure. Right Ventricle Right atrium and right ventricular normal size and contractility. Aortic Valve Aortic valve is minimally thickened and fibrosed, there is no aortic stenosis or aortic insufficiency. Mitral Valve Mitral valve is grossly normal, there is mild mitral regurgitation. Tricuspid Valve Tricuspid valve is grossly normal, there is mild tricuspid regurgitation, tricuspid regurgitation jet velocity is inadequate for calculation of the right ventricular systolic pressure. Pulmonic Valve Pulmonic valve is poorly visualized. Great Vessels Aortic root is normal size. Pericardium No significant pericardial effusion noted. Conclusion 1. Mildly enlarged left atrium, normal left ventricular size, mild concentric left ventricular hypertrophy, visually estimated ejection fraction 55% with no regional wall motion abnormality, grade 1 diastolic dysfunction seen without tissue Doppler evidence of raise left atrial pressure. 2. Mild mitral and tricuspid regurgitation. 3. No significant pericardial effusion noted. Electronically signed by : Carlitos Rojas, 04/09/2020 05:01:48
--- NOTE | 2020-04-08 10:46 | HMH.ITSHM ---
Current Home Medications as stated by this patient January Boyce or insurance claim representative. []TRAMADOL ROPINIROLE MIRABEGRON LISINOPRIL FLUTICASONE FERROUS SULFATE CITALOPRAM CETIRIZINE BISOPROLOL ATORVASTATIN ARMODAFINIL AMLODIPINE ALPRAZOLAM ALBUTEROL
== END ==
PROVIDERS: PCP Emergency Medicine; Visit Provider Physician Assistant
DX: E66.9 Obesity, unspecified (principal); E78.5 Hyperlipidemia, unspecified; I10 Essential (primary) hypertension; J44.9 Chronic obstructive pulmonary disease, unspecified; R06.00 Dyspnea, unspecified; R06.09 Other forms of dyspnea; R07.9 Chest pain, unspecified
CPT/HCPCS: 78452; 93017; 93306; A9502; J2785

== ENCOUNTER → 2020-04-29 10:12 | Outpatient (CLI) | payer MEDICARE, OTHER, MEDICAID, SELFPAY | PROVIDERS: PCP Emergency Medicine; Visit Provider Specialist | DX: G47.33 Obstructive sleep apnea (adult) (pediatric) (principal); G47.34 Idiopathic sleep related nonobstructive alveolar hypoventilation | CPT/HCPCS: 94762 ==

== ENCOUNTER → 2020-05-14 18:08 | Outpatient (CLI) | payer MEDICARE, OTHER, MEDICAID, SELFPAY | PROVIDERS: Visit Provider Nurse Practitioner Family | DX: N39.0 Urinary tract infection, site not specified (principal) | CPT/HCPCS: 87086 ==

== ENCOUNTER → 2020-09-23 12:59 | Outpatient (CLI) | payer MEDICARE, OTHER, MEDICAID, SELFPAY ==
--- NOTE | 2020-09-23 13:11 | XR_ITS ---
PROCEDURE: XR KNEE LT 4V CLINICAL INDICATION: LT knee pain COMPARISON: CR XR knee LT 3V from 08/29/2018 CR [id number] XR knee LT 4V from 09/15/2018 FINDINGS: No fracture or dislocation. No lytic or blastic change. There is normal mineralization. Moderate osteoarthritic changes involve all 3 compartments. No acute fracture or dislocation is evident. There is some cortical lobularity involving the articular surface of the medial femoral condyle smooth in nature. Osteophytes are present medially and at the patellofemoral joint. Other findings:None. IMPRESSION: Moderate osteoarthritic changes Dictated by: Contreras Pittman MD 09/23/2020 17:07 Contreras Pittman MD in [place] 09/23/2020 17:07
== END ==
PROVIDERS: PCP Emergency Medicine; Visit Provider Orthopaedic Surgery
DX: M25.562 Pain in left knee (principal)
CPT/HCPCS: 73564

== ENCOUNTER → 2020-10-07 13:53 | Outpatient (CLI) | payer MEDICARE, OTHER, MEDICAID, SELFPAY ==
[2020-10-07 15:35] LABS: Amphetamine/Metha Screen,Urine Negative ng/ml (<1000)
[2020-10-07 15:36] LABS: Barbiturates Screen,Urine Negative ng/ml (<200); Benzodiazepines Screen,Urine Positive ng/ml (<200)
[2020-10-07 15:37] LABS: Cannabinoid Screen,Urine Negative ng/ml (<50)
[2020-10-07 15:39] LABS: Opiate Screen,Urine Negative ng/ml (<300)
[2020-10-07 15:40] LABS: Phencyclidine Screen,Urine Negative ng/ml (<25)
[2020-10-07 15:59] LABS: Cocaine Screen,Urine Negative ng/ml (<300)
[2020-10-07 16:49] LABS: Methadone Screen,Urine Negative ng/ml (<300)
== END ==
PROVIDERS: Visit Provider Emergency Medicine
DX: Z79.899 Other long term (current) drug therapy (principal)
CPT/HCPCS: 80305

== ENCOUNTER → 2021-01-07 15:07 | Outpatient (CLI) | payer MEDICARE, OTHER, MEDICAID, SELFPAY ==
[2021-01-07 15:24] LABS: Alanine Aminotransferase 27 U/L (12-78); Albumin Level 4.2 g/dl (3.5-5.0); Albumin/Globulin Ratio 1.5 (1.1-1.8); Alkaline Phosphatase 101 U/L (38-126); Anion Gap 10.5 mEq/L (5-15); Aspartate Amino Transferase 39 U/L (14-36); Bilirubin,Total 0.6 mg/dl (0.2-1.3); Blood Urea Nitrogen 13 mg/dl (7-17); Calcium 8.9 mg/dl (8.4-10.2); Carbon Dioxide 34 mmol/L (22.0-30.0); Chloride 100 mmol/L (98-107); Chol/HDL Ratio 3.6 (1-3.5); Cholesterol 178 mg/dl (140-200); Estimated Glomerular Filt Rate 100 ml/min (>60); GFR (African American) 121 ML/MIN (>60); Globulin 2.8 g/dL (1.3-3.2); Glucose 109 mg/dl (74-100); HDL Cholesterol 50 mg/dl (40-60); Potassium 4.5 mmoL/L (3.5-5.1); Sodium 140 mmol/L (136-145); Triglycerides 143 mg/dl (30-150); VLDL Cholesterol 29 mg/dL (0-40)
[2021-01-07 15:35] LABS: Direct LDL Cholesterol 93.53 mg/dL (100-129)
[2021-01-07 15:40] LABS: Free T4 (Free Thyroxine) 1.27 ng/dl (0.78-2.19)
[2021-01-07 15:41] LABS: 25-OH Vitamin D, Total 33.6 ng/mL (30-100); Basophils % 0.5 % (0.1-2.0); Eosinophils # 0.1 K/mm3 (0.0-0.4); Eosinophils % 1.2 % (0.1-12.0); Hematocrit 46.3 % (37.0-47.0); Hemoglobin 14.5 g/dL (12.2-16.2); Lymphocytes # 1.3 K/mm3 (0.7-4.5); Lymphocytes % 20.1 % (10-50); Mean Corpuscular HGB Conc 31.3 g/dL (31.8-35.4); Mean Corpuscular Hemoglobin 30.3 pg (27.0-31.2); Mean Corpuscular Volume 96.9 fl (81-99); Mean Platelet Volume 9.1 fl (7.4-10.4); Monocytes # 0.4 K/mm3 (0.1-1.0); Monocytes % 5.4 % (1.7-9.3); Neutrophils # 4.8 K/mm3 (1.8-7.8); Neutrophils % 72.8 % (37.0-80.0); Platelet Count 222 K/mm3 (142-424); Red Blood Count 4.78 M/mm3 (4.20-5.40); Red Cell Distribution Width 12.8 % (11.5-17.5); White Blood Count 6.5 K/mm3 (4.8-10.8)
[2021-01-07 15:53] LABS: Amphetamine/Metha Screen,Urine Negative ng/ml (<1000)
[2021-01-07 15:54] LABS: Barbiturates Screen,Urine Negative ng/ml (<200)
[2021-01-07 15:55] LABS: Benzodiazepines Screen,Urine Positive ng/ml (<200); Cannabinoid Screen,Urine Negative ng/ml (<50)
[2021-01-07 15:56] LABS: Thyroid Stimulating Hormone 1.97 uIU/mL (0.465-4.68)
[2021-01-07 15:56] LABS: Cocaine Screen,Urine Negative ng/ml (<300)
[2021-01-07 15:57] LABS: Methadone Screen,Urine Negative ng/ml (<300); Opiate Screen,Urine Negative ng/ml (<300)
[2021-01-07 15:58] LABS: Phencyclidine Screen,Urine Negative ng/ml (<25)
== END ==
PROVIDERS: Visit Provider Emergency Medicine
DX: Z79.899 Other long term (current) drug therapy (principal); E66.9 Obesity, unspecified; E55.9 Vitamin D deficiency, unspecified; Z68.31 Body mass index [BMI] 31.0-31.9, adult
CPT/HCPCS: 80053; 80061; 80305; 82306; 84439; 84443; 85025

== ENCOUNTER → 2021-02-25 08:36 | Outpatient (CLI) | payer MEDICARE, OTHER, SELFPAY ==
--- NOTE | 2021-02-25 08:46 | XR_ITS ---
PROCEDURE: XR KNEE RT 4V CLINICAL INDICATION: right knee pain COMPARISON: CR XR knee LT 3V from 08/29/2018 CR [id number] XR knee LT 4V from 09/15/2018 CR XR KNEE LT 4V from 09/23/2020 FINDINGS: No fracture or dislocation. No lytic or blastic change. There is normal mineralization. Tricompartmental osteoarthritic changes are present which are mild in nature. Other findings:None. IMPRESSION: Osteoarthritic changes Dictated by: Contreras Pittman MD 02/25/2021 09:24 Contreras Pittman MD in [place] 02/25/2021 09:24
== END ==
PROVIDERS: PCP Emergency Medicine; Visit Provider Orthopaedic Surgery
DX: M25.561 Pain in right knee (principal)
CPT/HCPCS: 73564

== ENCOUNTER → 2021-03-06 07:45 | Outpatient (CLI) | payer MEDICARE, OTHER, SELFPAY ==
--- NOTE | 2021-03-06 07:46 | CT_ITS ---
PROCEDURE: CT LUNG SCREENING CLINICAL INDICATION: lung cancer screening COMPARISON: CT CT CHEST WO CON from 04/03/2020 TECHNIQUE: The exam was performed on a GE Light Speed [address] scanner using a low dose helical CT CHEST was performed on a multi-detector scanner. All CT scans at the facility use one or more dose reduction, viz: automated exposure control, ma/kV adjustment per patient size (including targeted exams where dose is matched to indication, i.e. head), or iterative reconstruction technique. The LDCT was performed in a facility that meets the criteria for the screening program. Data regarding this exam was submitted to ACR which is an approved registry. The order for this exam indicates that it came as a result of a lung cancer screening counseling shard decision-making visit that included all the elements required of such a visit including smoking cessation. The radiologist interpreting this exam meets the CMS criteria for the LDCT lung cancer screening program. The exam is reported using the Lung-RADS classification scale and reported to the ACR registry. NOTE: This study was performed for the specific purposes of lung cancer screening and is not an alternative to diagnostic chest CT. RADIATION DOSE: CTDI vol(CT dose Index-volume) = 2.90mG DLP (Dose Length Product) = 104.9 mGcm FINDINGS: COPD changes. Large ventral abdominal wall hernia containing peritoneal fat and colon. The hernia occupies the lower portion of the right hemithorax with resultant right middle and right lower lobe atelectasis.. No suspicious nodule is evident. There is a calcified granuloma in the left upper lobe. A subpleural 3 mm nodule in the left upper lobe posteriorly. OTHER FINDINGS: Coronary artery calcifications. Bowel interposition on the right containing colon. On the most inferior image there is a 14 mm calcification in the medial aspect of the liver cysts which this may be related to cholelithiasis IMPRESSION: Lung-RADS Category 2 Benign Appearance or Behavior Follow-up: Continue annual screening with LDCT in 12 months Large ventral abdominal wall hernia containing large bowel. Possible cholelithiasis Dictated by: Contreras Pittman MD 03/23/2021 09:12 Contreras Pittman MD in [place] 03/23/2021 09:12
== END ==
PROVIDERS: PCP Emergency Medicine; Visit Provider Internal Medicine Pulmonary Disease
DX: Z87.891 Personal history of nicotine dependence (principal); Z12.2 Encounter for screening for malignant neoplasm of respiratory organs
CPT/HCPCS: 71271

== ENCOUNTER → 2021-04-07 14:27 | Outpatient (CLI) | payer MEDICARE, OTHER, SELFPAY ==
[2021-04-07 15:29] LABS: Amphetamine/Metha Screen,Urine Negative ng/ml (<1000)
[2021-04-07 15:30] LABS: Barbiturates Screen,Urine Negative ng/ml (<200); Benzodiazepines Screen,Urine Positive ng/ml (<200)
[2021-04-07 15:31] LABS: Cannabinoid Screen,Urine Negative ng/ml (<50); Cocaine Screen,Urine Negative ng/ml (<300)
[2021-04-07 15:32] LABS: Methadone Screen,Urine Negative ng/ml (<300)
[2021-04-07 15:33] LABS: Opiate Screen,Urine Negative ng/ml (<300); Phencyclidine Screen,Urine Negative ng/ml (<25)
== END ==
PROVIDERS: Visit Provider Emergency Medicine
DX: M54.9 Dorsalgia, unspecified (principal); Z79.899 Other long term (current) drug therapy
CPT/HCPCS: 80305

== ENCOUNTER → 2021-05-12 16:49 | Outpatient (CLI) | payer MEDICARE, OTHER, SELFPAY ==
--- NOTE | 2021-05-12 16:49 | MM_ITS ---
PROCEDURE INFORMATION: Exam: MG Bilateral Screening 3D Mammography Exam date and time: 05/12/2021 4:49 PM Age: 65 years old Clinical indication: Encounter for screening mammogram for malignant neoplasm of breast TECHNIQUE: Imaging protocol: Bilateral screening tomosynthesis and 2D mammography including computer-aided detection (CAD) when performed. COMPARISON: 1. MG MM DIG SCREENING MAMM BI W/CAD 01/25/2020 1:02 PM 2. MG SCBI MM Dig screening mamm BI w/CAD 09/15/2018 8:44 AM FINDINGS: MAMMOGRAPHY: Breast composition: The breast tissue is heterogeneously dense, which may obscure small masses. Mass: None. Architectural distortion: None. Calcifications: No suspicious calcifications. Asymmetric density: None. Skin thickening: None. Axillary adenopathy: None. IMPRESSION: No mammographic evidence of malignancy. Annual screening is recommended unless otherwise clinically indicated. ASSESSMENT: BI-RADS Category 1: Negative
== END ==
PROVIDERS: PCP Emergency Medicine; Visit Provider Emergency Medicine
DX: Z12.31 Encounter for screening mammogram for malignant neoplasm of breast (principal)
CPT/HCPCS: 77063; 77067

== ENCOUNTER 2021-06-15 14:28 | Emergency (ER) | payer MEDICARE, MEDICAID, OTHER, SELFPAY ==
[2021-06-15 15:00] VITALS: BP 0/0; PULSE 0; RESP 0; TEMP -17.7; TEMP 0
== END 2021-06-15 15:05 | disposition left against medical advice (07) ==
LOC: UTC 14:31
PROVIDERS: Emergency Provider Nurse Practitioner Family; PCP Emergency Medicine
DX: Z53.21 Procedure and treatment not carried out due to patient leaving prior to being seen by health care provider (principal)

== ENCOUNTER → 2021-06-15 14:40 | Outpatient (CLI) | payer MEDICARE, MEDICAID, OTHER, SELFPAY | PROVIDERS: PCP Nurse Practitioner Family; Visit Provider Nurse Practitioner Family | DX: Z20.822 Contact with and (suspected) exposure to COVID-19 (principal) | CPT/HCPCS: C9803; U0003; U0005 ==

== ENCOUNTER → 2021-07-02 09:30 | Outpatient (CLI) | payer MEDICARE, OTHER, MEDICAID, SELFPAY ==
--- NOTE | 2021-07-02 09:35 | XR_ITS ---
FINAL REPORT CLINICAL HISTORY: left knee pain; weightbearing COMPARISON: September 15, 2018 FINDINGS: LEFT KNEE 4 weight-bearing views of the left knee were obtained. There is no acute fracture or dislocation. There is advanced medial compartment joint space narrowing. There is subchondral sclerosis. There is a 1.2 cm osteochondral defect in the medial femoral condyle. There is moderate osteophyte formation is seen at the medial joint margin. There are moderate osteophytes along the undersurface of the patella. Soft tissues are unremarkable. IMPRESSION: Degenerative changes as described. Reviewed, Interpreted and Dictated by Kb Travis MD Transcribed by Kelsea Gilmore Authenticated by Kb Travis MD on 07/02/2021 11:33:03 AM [facility]
== END ==
PROVIDERS: PCP Emergency Medicine; Visit Provider Orthopaedic Surgery
DX: M25.562 Pain in left knee (principal)
CPT/HCPCS: 73564

== ENCOUNTER → 2022-03-18 10:00 | Outpatient (CLI) | payer MEDICARE, SELFPAY ==
[2022-03-18 18:25] LABS: Amphetamine/Metha Screen,Urine Negative ng/ml (<1000)
[2022-03-18 18:26] LABS: Barbiturates Screen,Urine Negative ng/ml (<200); Benzodiazepines Screen,Urine Positive ng/ml (<200)
[2022-03-18 18:27] LABS: Cannabinoid Screen,Urine Negative ng/ml (<50)
[2022-03-18 18:28] LABS: Cocaine Screen,Urine Negative ng/ml (<300); Methadone Screen,Urine Negative ng/ml (<300)
[2022-03-18 18:29] LABS: Opiate Screen,Urine Negative ng/ml (<300)
[2022-03-18 18:30] LABS: Phencyclidine Screen,Urine Negative ng/ml (<25)
== END ==
PROVIDERS: PCP Emergency Medicine; Visit Provider Emergency Medicine
DX: Z79.899 Other long term (current) drug therapy (principal)
CPT/HCPCS: 80305

== ENCOUNTER → 2022-03-23 14:47 | Outpatient (CLI) | payer MEDICARE, SELFPAY ==
--- NOTE | 2022-03-23 14:48 | CT_ITS ---
FINAL REPORT CLINICAL HISTORY: lung cancer screening.former smoker smoked 1/2 ppd x 30 years. copd COMPARISON: 03/06/2021 FINDINGS: CTDI vol (mGy): 2.[address] images of the chest were obtained using the low-dose protocol for screening. There is a left thyroid mass measuring 2.6 cm, similar to prior exam. Moderate coronary artery calcifications are seen. There is a large, anterior diaphragmatic hernia which extends into the right thorax containing significant amount of: In a large amount of fat, stable from prior exam. There is no evidence of mediastinal or hilar mass or adenopathy. No axillary mass or adenopathy is identified. On the lung window images, a 3 mm, posterior left upper lobe nodule seen on image number 14 and is stable from prior exam. There is a calcified granuloma of the left lung. Right lung atelectasis is noted. IMPRESSION: Large diaphragmatic hernia, stable. Left thyroid lobe mass, unchanged. Stable 3 mm nodule in the posterior left upper lobe. Lung RADS category 2 S. Recommend 12 month followup low-dose CT for further evaluation. Reviewed, Interpreted and Dictated by Tae Street III, MD Transcribed by Peggy Narayan Authenticated and [facility]
== END ==
PROVIDERS: PCP Emergency Medicine; Visit Provider Internal Medicine Pulmonary Disease
DX: Z87.891 Personal history of nicotine dependence; Z12.2 Encounter for screening for malignant neoplasm of respiratory organs
CPT/HCPCS: 71271

== ENCOUNTER → 2022-07-20 07:52 | Outpatient (CLI) | payer MEDICARE, SELFPAY ==
--- NOTE | 2022-07-20 08:19 | MM_ITS ---
PROCEDURE INFORMATION: Exam: MG Bilateral Screening 3D Mammography Exam date and time: 07/20/2022 8:10 AM Age: 66 years old Clinical indication: Screening examination TECHNIQUE: Imaging protocol: Bilateral Screening tomosynthesis and 2D mammography including computer-aided detection (CAD) when performed. COMPARISON: 1. MG MM DIG SCREENING MAMM BI W/CAD 05/12/2021 4:44 PM 2. MG MM DIG SCREENING MAMM BI W/CAD 01/25/2020 1:02 PM FINDINGS: MAMMOGRAPHY: Breast composition: The breasts are heterogeneously dense, which may obscure small masses. Mass: None. Architectural distortion: None. Calcifications: No suspicious calcifications. Asymmetric density: None. Skin thickening: None. Axillary adenopathy: None. IMPRESSION: No mammographic evidence of malignancy. Annual screening is recommended unless otherwise clinically indicated. ASSESSMENT: BI-RADS Category 1: Negative
== END ==
PROVIDERS: PCP Emergency Medicine; Visit Provider Emergency Medicine
DX: Z12.31 Encounter for screening mammogram for malignant neoplasm of breast (principal)
CPT/HCPCS: 77063; 77067

== ENCOUNTER → 2022-09-11 13:57 | Outpatient (CLI) | payer MEDICARE, SELFPAY ==
[2022-09-11 14:38] LABS: Alanine Aminotransferase 24 U/L (12-78); Albumin Level 4.3 g/dl (3.5-5.0); Albumin/Globulin Ratio 1.7 (1.1-1.8); Alkaline Phosphatase 111 U/L (38-126); Anion Gap 7.5 mEq/L (5-15); Aspartate Amino Transferase 30 U/L (14-36); Bilirubin,Total 0.4 mg/dl (0.2-1.3); Blood Urea Nitrogen 13 mg/dl (7-17); Calcium 8.8 mg/dl (8.4-10.2); Carbon Dioxide 33 mmol/L (22.0-30.0); Chloride 99 mmol/L (98-107); Chol/HDL Ratio 3.8 (1-3.5); Cholesterol 173 mg/dl (140-200); Estimated Glomerular Filt Rate 99 ml/min (>60); GFR (African American) 120 ML/MIN (>60); Globulin 2.6 g/dL (1.3-3.2); Glucose 114 mg/dl (74-100); HDL Cholesterol 46 mg/dl (40-60); Potassium 4.5 mmoL/L (3.5-5.1); Sodium 135 mmol/L (136-145); Total Protein,Serum 6.9 g/dl (6.3-8.2); Triglycerides 142 mg/dl (30-150); VLDL Cholesterol 28 mg/dL (0-40)
[2022-09-11 14:50] LABS: Direct LDL Cholesterol 98.79 mg/dL (100-129)
[2022-09-11 14:55] LABS: 25-OH Vitamin D, Total 30.5 ng/mL (30-100)
[2022-09-11 14:59] LABS: Free T4 (Free Thyroxine) 1.26 ng/dl (0.78-2.19)
[2022-09-11 15:07] LABS: Basophils % 0.4 % (0.1-2.0); Eosinophils # 0.1 K/mm3 (0.0-0.4); Eosinophils % 1.7 % (0.1-12.0); Hematocrit 47.1 % (37.0-47.0); Hemoglobin 14.5 g/dL (12.2-16.2); Lymphocytes # 1.5 K/mm3 (0.7-4.5); Lymphocytes % 18.4 % (10-50); Mean Corpuscular HGB Conc 30.8 g/dL (31.8-35.4); Mean Corpuscular Hemoglobin 29.6 pg (27.0-31.2); Mean Platelet Volume 8.9 fl (7.4-10.4); Monocytes # 0.4 K/mm3 (0.1-1.0); Monocytes % 5.3 % (1.7-9.3); Neutrophils # 5.9 K/mm3 (1.8-7.8); Neutrophils % 74.1 % (37.0-80.0); Platelet Count 277 K/mm3 (142-424); Red Cell Distribution Width 13.2 % (11.5-17.5); White Blood Count 7.9 K/mm3 (4.8-10.8)
[2022-09-11 15:10] LABS: Thyroid Stimulating Hormone 2.51 uIU/mL (0.465-4.68)
== END ==
PROVIDERS: PCP Emergency Medicine; Visit Provider Emergency Medicine
DX: E55.9 Vitamin D deficiency, unspecified (principal); K59.00 Constipation, unspecified; E03.9 Hypothyroidism, unspecified; R53.83 Other fatigue
CPT/HCPCS: 80053; 80061; 82306; 84439; 84443; 85025

== ENCOUNTER → 2022-09-16 09:49 | Outpatient (CLI) | payer MEDICARE, SELFPAY | PROVIDERS: PCP Emergency Medicine; Visit Provider Internal Medicine Pulmonary Disease | DX: R06.09 Other forms of dyspnea (principal) | CPT/HCPCS: 94060; 94618; 94726; 94729 ==

== ENCOUNTER → 2022-09-22 15:11 | Outpatient (CLI) | payer MEDICARE, SELFPAY ==
--- NOTE | 2022-09-22 15:11 | US_ITS ---
FINAL REPORT CLINICAL HISTORY: Thyroid Nodule FINDINGS: THYROID ULTRASOUND Sonographic images of the thyroid was obtained. The right lobe of the thyroid measures 3.3 x 1.5 x 1.4 cm. There is a 7 x 5 x 4 mm solid hypoechoic TI-RADS 4 nodule. The left lobe of the thyroid measures 4.1 x 2.3 x 1.9 cm. In the upper pole, there is a 10 x 11 x 8 mm spongiform TI-RADS category 1 nodule. In the mid left lobe, there is also a mostly solid and isoechoic 31 x 20 x 31 mm nodule in the left lobe, TI-RADS category 3. The isthmus measures 3 mm. IMPRESSION: Bilateral thyroid nodules as above. Recommend ultrasound-guided biopsy of the left lobe dominant mass. Reviewed, Interpreted and Dictated by Tae Street III, MD Transcribed by Kelsea Gilmore Authenticated and [facility]
== END ==
PROVIDERS: PCP Emergency Medicine; Visit Provider Emergency Medicine
DX: E04.1 Nontoxic single thyroid nodule (principal)
CPT/HCPCS: 76536

== ENCOUNTER → 2022-10-05 07:47 | Outpatient (CLI) | payer MEDICARE, SELFPAY ==
--- NOTE | 2022-10-05 08:14 | US_ITS ---
FINAL REPORT CLINICAL HISTORY: E04.1 - Nontoxic single thyroid nodule left lower lobe nodule Kushal LEON FINDINGS: Ultrasound guided thyroid biopsy. HISTORY: Thyroid mass. PROCEDURE: After informed consent was obtained and a time-out was performed, the patient was prepped and draped in usual sterile fashion over the left neck. Utilizing local anesthesia and sterile technique with a 25-gauge needle, access to lesion was obtained. Three passes were made. The pathologist indicated the specimens were adequate for diagnostic purposes. The patient received no conscious sedation. The patient tolerated procedure well and left the department in good condition. IMPRESSION: Status post ultrasound guided biopsy of thyroid without immediate complication. Films reviewed , interpreted and dictated by Dr. Travis. Transcribed by Kushal Gallegos PA-C. Reviewed, Interpreted and Dictated by Kb Travis MD Transcribed by EDWARD Vásquez Authenticated and [facility]
== END ==
PROVIDERS: PCP Emergency Medicine; Visit Provider Emergency Medicine
DX: E04.1 Nontoxic single thyroid nodule (principal)
CPT/HCPCS: 10005; 76536

== ENCOUNTER → 2022-10-21 07:37 | Outpatient (CLI) | payer MEDICARE, SELFPAY ==
--- NOTE | 2022-10-21 07:37 | US_ITS ---
FINAL REPORT CLINICAL HISTORY: .left thyroid FNA repeat -- Pathologist present FINDINGS: Ultrasound guided thyroid biopsy. HISTORY:. Left thyroid mass. PROCEDURE: After informed consent was obtained and a time-out was performed, the patient was prepped and draped in usual sterile fashion over the left neck. Utilizing local anesthesia and sterile technique with a 25-gauge needle, access to lesion was obtained. A total of 2 passes were made. The pathologist indicated the specimens were adequate for diagnostic purposes. The patient received no conscious sedation. The patient tolerated procedure well and left the department in good condition. IMPRESSION: Status post ultrasound guided biopsy of thyroid without immediate complication. Films reviewed , interpreted and dictated by Dr. Street. Transcribed by Kushal Gallegos PA-C. Reviewed, Interpreted and Dictated by Tae Street III, MD Transcribed by EDWARD Vásquez Authenticated and [facility]
== END ==
PROVIDERS: PCP Emergency Medicine; Visit Provider Emergency Medicine
DX: E04.1 Nontoxic single thyroid nodule (principal)
CPT/HCPCS: 10005; 76536; 88172; 88173; 88305

== ENCOUNTER → 2023-02-12 11:00 | Outpatient (CLI) | payer MEDICARE, SELFPAY ==
--- NOTE | 2023-02-12 11:09 | CA_ITS ---
APPROVED REPORT EXAM: Comprehensive 2D, Doppler, and color-flow Echocardiogram Driller And Broacher: Consuelo Domingo RT(R) Ht: 5 ft 1 in Wt: 192lbs BSA: 1.86 BP: 136/83 mmHg Indications: COPD, smoker, obesity, HTN, hyperlipidemia, SOB 2D Dimensions Aortic Root 1.73 cm F: 2.7 - 3.3 LA Volume 23.30 mL LA Volume Index 12.53 mL/m2 (M/F) 16-34 M-Mode Dimensions RVDd 2.72 cm (0.9-2.6) LA Diam 3.24 cm (1.9-4.0) LVDd 4.55 cm (3.5-5.7) Ao Diam 2.51 cm (2.0-3.7) LVDs 3.23 cm (3.5-5.7) IVSd 0.64 cm (0.6-1.1) PWd 0.72 cm (0.6-1.1) EF (Teich) 55.80% FS 29.00% EDV (Teich) 94.90 mL ESV (Teich) 41.90 mL LV Diastology E Decel Time 220.00 (160-240 msec) E/A Ratio 0.9 MED E' 6.40 (< 7 cm/sec) E'/MED E' Ratio 13.11 (>14) LAT E' 9.90 (<10 cm/sec) E/LAT E' Ratio 8.47 (>14) Mitral Valve MV E Max Chalo. 84.00 (40-130 cm/s) MV A Velocity 97.00 (40-130 cm/s) E/A Ratio 0.86 MV Decel. Time 220.00 (160-240 ms) MV PHT 64.00 ms Left Ventricle The left ventricle is normal size. The left ventricular systolic function is normal. The left ventricular ejection fraction is within the normal range. There is increased LV wall thickness. There is normal LV segmental wall motion. The left ventricular diastolic function is normal. LVEF is 60%. Right Ventricle The right ventricle is normal size. The right ventricular systolic function is normal. Atria The left atrium size is normal. The right atrium size is normal. The interatrial septum is not well visualized. Aortic Valve The aortic valve is mildly thickened. There is no aortic valvular stenosis. No aortic regurgitation is present. Mitral Valve The mitral valve is normal in structure. No evidence of mitral valve stenosis. Trace mitral regurgitation. Tricuspid Valve The tricuspid valve is thin and pliable. Trace tricuspid regurgitation. There is insufficient TR jet to estimate RVSP. Pulmonic Valve The pulmonary valve is normal in structure. Trace pulmonic regurgitation. Great Vessels The aortic root is normal in size. The ascending aorta is normal in size. The IVC is not well visualized. Pericardium There is no pericardial effusion. Other Information Study Quality: Technically Difficult. Technically limited study due to . Conclusion This was a technically difficult study in the setting of poor accoustic windows. Normal biventricular systolic function. No significant valvular disease. Electronically signed by : Aishwarya Damon, 02/16/2023 23:11:50
== END ==
PROVIDERS: PCP Emergency Medicine; Visit Provider Physician Assistant
DX: E66.9 Obesity, unspecified (principal); E78.5 Hyperlipidemia, unspecified; R06.00 Dyspnea, unspecified; Z68.36 Body mass index [BMI] 36.0-36.9, adult
CPT/HCPCS: 93306

== ENCOUNTER → 2023-02-18 15:48 | Outpatient (CLI) | payer MEDICARE, SELFPAY ==
[2023-02-18 14:23] LABS: Amphetamine/Metha Screen,Urine Negative ng/ml (<1000)
[2023-02-18 14:34] LABS: Barbiturates Screen,Urine Negative ng/ml (<200)
[2023-02-18 14:36] LABS: Benzodiazepines Screen,Urine Positive ng/ml (<200)
[2023-02-18 14:37] LABS: Cannabinoid Screen,Urine Negative ng/ml (<50)
[2023-02-18 14:38] LABS: Cocaine Screen,Urine Negative ng/ml (<300)
[2023-02-18 14:39] LABS: Methadone Screen,Urine Negative ng/ml (<300); Opiate Screen,Urine Negative ng/ml (<300)
[2023-02-18 14:40] LABS: Phencyclidine Screen,Urine Negative ng/ml (<25)
== END ==
PROVIDERS: PCP Emergency Medicine; Visit Provider Emergency Medicine
DX: Z79.899 Other long term (current) drug therapy (principal)
CPT/HCPCS: 80305

== ENCOUNTER → 2023-03-24 15:04 | Outpatient (CLI) | payer MEDICARE, SELFPAY ==
--- NOTE | 2023-03-24 15:05 | CT_ITS ---
FINAL REPORT CLINICAL HISTORY: lung cancer screening previous smoker , quit 16 years ago, smoked almost 1 ppd x 30 years COMPARISON: 03/23/2022 FINDINGS: CT CHEST LOW DOSE SCREENING HISTORY: Screening exam for lung cancer. Former smoker, 30 pack year smoking history DOSE: CTDIvol: 2.9 mGy, DLP: 98.73 mGy*cm COMPARISON: 03/23/2022. TECHNIQUE: Axial CT without IV contrast administration using low dose protocol FINDINGS: The left thyroid mass noted on the prior CT of 2021 measures 23 mm on today's examination, stable. Moderate coronary artery calcifications are once again noted, also stable. The large right diaphragmatic hernia with atelectasis in the right lung base remains present and is not significantly changed in appearance. Calcified left granulomas are once again noted. No acute lung disease is present . The 3 mm nodule noted in the posterior left upper lobe also remained stable. No new masses or nodules are identified. No pleural or pericardial effusion is seen . No adenopathy or mass lesion is present . IMPRESSION: No significant change since the prior LDCT of March 2022. LUNG RADS CATEGORY 1S, the S designation for the thyroid nodule and the large right diaphragmatic hernia. RECOMMENDATION: 12 month LDCT follow up Reviewed, Interpreted and Dictated by Tae Street III, MD Transcribed by Janie Huang Authenticated and [facility]
== END ==
PROVIDERS: PCP Emergency Medicine; Visit Provider Internal Medicine Pulmonary Disease
DX: F17.210 Nicotine dependence, cigarettes, uncomplicated (principal)
CPT/HCPCS: 71271

== ENCOUNTER → 2023-04-15 14:41 | Outpatient (CLI) | payer MEDICARE, SELFPAY ==
--- NOTE | 2023-04-16 13:03 | RESP.PFTBD ---
UNABLE TO DO METHACHOLINE TEST DUE TO PRE NUMBERS BEING TO LOW.
== END ==
PROVIDERS: PCP Emergency Medicine; Visit Provider Internal Medicine Pulmonary Disease
DX: R06.09 Other forms of dyspnea (principal)

== ENCOUNTER → 2023-05-17 23:11 | Outpatient (CLI) | payer MEDICARE, SELFPAY ==
[2023-05-17 20:25] LABS: Amphetamine/Metha Screen,Urine Negative ng/ml (<1000)
[2023-05-17 20:26] LABS: Barbiturates Screen,Urine Negative ng/ml (<200)
[2023-05-17 20:27] LABS: Benzodiazepines Screen,Urine Positive ng/ml (<200); Cannabinoid Screen,Urine Negative ng/ml (<50)
[2023-05-17 20:28] LABS: Cocaine Screen,Urine Negative ng/ml (<300)
[2023-05-17 20:29] LABS: Methadone Screen,Urine Negative ng/ml (<300); Opiate Screen,Urine Negative ng/ml (<300)
[2023-05-17 20:30] LABS: Phencyclidine Screen,Urine Negative ng/ml (<25)
== END ==
PROVIDERS: PCP Physician Assistant; Visit Provider Physician Assistant
DX: Z79.899 Other long term (current) drug therapy (principal)
CPT/HCPCS: 80305

== ENCOUNTER 2023-06-10 09:19 | Outpatient (CLI) | payer MEDICARE, SELFPAY ==
--- NOTE | 2023-06-10 09:19 | XR_ITS ---
FINAL REPORT CLINICAL HISTORY: post menopausal Osteoporosis screening COMPARISON: None FINDINGS: Using L1-4, the bone mineral density of the spine is 1.025 g/cm2, corresponding to T-score of -0.2, within normal limits. Using the left hip, the bone mineral density of the femoral neck is 0.815 g/cm2, corresponding to a T-score of -1.0, within normal limits. Using the right hip, the bone mineral density of the femoral neck is 0.841 g/cm2, corresponding to a T-score of -0.1, within normal limits. FRAX not reported because all T-scores at or above -1.0. NOTE: T-score: Standard deviation compared with peak bone mass of young adult mean. *Following the recommendations of the International Society of Bone densitometry, classification of hip BMD is based on the lower of two T-scores; total hip or femoral neck. IMPRESSION: Normal bone mineral density of the lumbar spine and hips. Reviewed, Interpreted and Dictated by Tae Street III, MD Transcribed by Alyson Nance Authenticated and . [facility]
== END 2023-06-10 23:59 ==
LOC: RAD 09:19
PROVIDERS: PCP Physician Assistant; Visit Provider Physician Assistant
DX: Z78.0 Asymptomatic menopausal state (principal); Z13.820 Encounter for screening for osteoporosis
CPT/HCPCS: 77080

== ENCOUNTER 2023-09-03 15:40 | Outpatient (CLI) | payer MEDICARE, SELFPAY ==
--- NOTE | 2023-09-03 15:40 | MM_ITS ---
PROCEDURE INFORMATION: Exam: MG Bilateral Screening 3D Mammography Exam date and time: 09/03/2023 3:47 PM Age: 67 years old Clinical indication: Screening. No family history of breast cancer. TECHNIQUE: Imaging protocol: Bilateral Screening tomosynthesis and 2D mammography including computer-aided detection (CAD) when performed. COMPARISON: 1. MG MM DIG SCREENING MAMM BI W/CAD 07/20/2022 8:10 AM 2. MG MM DIG SCREENING MAMM BI W/CAD 05/12/2021 4:44 PM 3. MG MM DIG SCREENING MAMM BI W/CAD 01/25/2020 1:02 PM 4. MG SCBI MM Dig screening mamm BI w/CAD 09/15/2018 8:44 AM FINDINGS: MAMMOGRAPHY: Breast composition: The breasts are heterogeneously dense, which may obscure small masses. Mass: None. Architectural distortion: None. Calcifications: No suspicious calcifications. Asymmetric density: None. Skin thickening: None. Axillary adenopathy: None. IMPRESSION: No mammographic evidence of malignancy. Annual screening is recommended unless otherwise clinically indicated. ASSESSMENT: BI-RADS Category 1: Negative
== END 2023-09-03 23:59 ==
LOC: RAD 15:40
PROVIDERS: PCP Physician Assistant; Visit Provider Physician Assistant
DX: Z12.31 Encounter for screening mammogram for malignant neoplasm of breast (principal)
CPT/HCPCS: 77063; 77067

== ENCOUNTER 2024-02-14 07:35 | Outpatient (CLI) | payer MEDICARE, SELFPAY ==
[2024-02-14 08:27] LABS: Basophils % 0.2 % (0.1-2.0); Eosinophils % 0.3 % (0.1-12.0); Hematocrit 46.9 % (37.0-47.0); Hemoglobin 14.3 g/dL (12.2-16.2); Lymphocytes # 1.3 K/mm3 (0.7-4.5); Mean Corpuscular HGB Conc 30.5 g/dL (31.8-35.4); Mean Corpuscular Hemoglobin 30.3 pg (27.0-31.2); Mean Corpuscular Volume 99.2 fl (81-99); Mean Platelet Volume 8.2 fl (7.4-10.4); Monocytes # 0.7 K/mm3 (0.1-1.0); Monocytes % 5.8 % (1.7-9.3); Neutrophils # 9.9 K/mm3 (1.8-7.8); Neutrophils % 82.6 % (37.0-80.0); Platelet Count 303 K/mm3 (142-424); Red Blood Count 4.73 M/mm3 (4.20-5.40); Red Cell Distribution Width 14.1 % (11.5-17.5)
[2024-02-14 08:35] LABS: Chloride 104 mmol/L (98-107); Sodium 140 mmol/L (136-145)
[2024-02-14 08:36] LABS: Potassium 4.3 mmoL/L (3.5-5.1)
[2024-02-14 08:38] LABS: Alanine Aminotransferase 32 U/L (12-78); Alkaline Phosphatase 83 U/L (38-126); Anion Gap 6.3 mEq/L (5-15); Aspartate Amino Transferase 31 U/L (14-36); Bilirubin,Indirect 0.4 mg/dL (0.0-0.9); Bilirubin,Total 0.4 mg/dl (0.2-1.3); Bilirubin,Unconjugated 0.5 mg/dL (0.0-1.1); Blood Urea Nitrogen 18 mg/dl (7-17); Carbon Dioxide 34 mmol/L (22.0-30.0); Cholesterol 215 mg/dl (140-200); Estimated Glomerular Filt Rate 99 ml/min (>60); GFR (African American) 120 ML/MIN (>60); Total Protein,Serum 6.8 g/dl (6.3-8.2); Triglycerides 138 mg/dl (30-150); VLDL Cholesterol 28 mg/dL (0-40)
[2024-02-14 08:39] LABS: Chol/HDL Ratio 3.3 (1-3.5); Glucose 108 mg/dl (74-100); HDL Cholesterol 66 mg/dl (40-60); Magnesium 2.4 mg/dl (1.6-2.3)
[2024-02-14 08:50] LABS: Direct LDL Cholesterol 109.81 mg/dL (100-129)
[2024-02-14 08:57] LABS: Free T4 (Free Thyroxine) 0.84 ng/dl (0.78-2.19)
[2024-02-14 09:12] LABS: Thyroid Stimulating Hormone 1.32 uIU/mL (0.465-4.68)
== END 2024-02-14 23:59 | disposition home or self-care (01) ==
LOC: LAB 07:38
PROVIDERS: PCP Internal Medicine; Visit Provider Physician Assistant
DX: I10 Essential (primary) hypertension (principal); I51.89 Other ill-defined heart diseases; E78.2 Mixed hyperlipidemia; E66.9 Obesity, unspecified; R06.09 Other forms of dyspnea
CPT/HCPCS: 36415; 80048; 80061; 80076; 83735; 84439; 84443; 85025

== ENCOUNTER 2024-03-29 15:06 | Outpatient (CLI) | payer MEDICARE, SELFPAY ==
--- NOTE | 2024-03-29 15:06 | CT_ITS ---
FINAL REPORT TECHNIQUE: Thin section axial images were obtained from the lung apices to the upper abdomen by computed tomography. Reformatted images were obtained and reviewed. This study was performed with techniques to keep radiation doses al low as reasonably achievable (ALARA). Individualized dose reduction techniques using automated exposure control or adjustment of mA and/or kV according to the patient's size were employed. CLINICAL HISTORY: previous smoker, quit 12 years ago, almost 1 ppd and smoker for 30 years prior to quiting COMPARISON: 03/24/2023 FINDINGS: CHEST CT LOW DOSE CTDI vol (mGy): 2.90 DLP (mGy-cm): 99.77 There is a left thyroid nodule measuring 27 mm and previously measured 23 mm. There is no axillary adenopathy. There is no mediastinal or hilar mass or adenopathy. The heart is normal in size. Moderate coronary artery calcifications are noted. There is no pericardial or pleural effusion. Lung window images demonstrate a stable 3 mm posterior left upper lobe nodule on series 3 image 14. A calcified granuloma is noted in the left upper lobe. There is a large right diaphragmatic hernia with right basilar atelectasis Limited images of the upper abdomen are unremarkable. IMPRESSION: Lung-RADS category 1S. Recommend 12 month follow up low dose chest CT. Modifier S: Moderate coronary artery calcifications and large right diaphragmatic hernia. Reviewed, Interpreted and Dictated by Tae Street III, MD Transcribed by Alyson Nance Authenticated and [facility]
== END 2024-03-29 23:59 | disposition home or self-care (01) ==
LOC: RAD 15:06
PROVIDERS: PCP Internal Medicine; Visit Provider Internal Medicine Pulmonary Disease
DX: F17.210 Nicotine dependence, cigarettes, uncomplicated (principal)
CPT/HCPCS: 71271

== ENCOUNTER 2024-04-14 10:52 | Outpatient (CLI) | payer MEDICARE, SELFPAY | END 2024-04-14 23:59 | disposition home or self-care (01) | LOC: RT 10:54 | PROVIDERS: PCP Family Medicine; Visit Provider Internal Medicine Pulmonary Disease | DX: G47.33 Obstructive sleep apnea (adult) (pediatric) (principal) | CPT/HCPCS: 94762 ==

== ENCOUNTER 2024-06-09 07:45 | Outpatient (CLI) | payer MEDICARE, SELFPAY ==
--- NOTE | 2024-06-09 10:48 | PC.NURSE ---
Neuromuscular PFT completed without incident. MIP/MEP completed and Post FVC pt performed laying flat. Pt tolerated procedure well.
== END 2024-06-09 23:59 | disposition home or self-care (01) ==
PROVIDERS: PCP Family Medicine; Visit Provider Internal Medicine Pulmonary Disease
DX: R06.09 Other forms of dyspnea (principal); R94.2 Abnormal results of pulmonary function studies
CPT/HCPCS: 94060; 94618; 94726; 94729

== ENCOUNTER 2024-07-24 09:20 | Outpatient (CLI) | payer MEDICARE, SELFPAY ==
[2024-07-24 18:18] LABS: Basophils % 0.5 % (0.1-2.0); Eosinophils # 0.1 K/mm3 (0.0-0.4); Eosinophils % 0.9 % (0.1-12.0); Hematocrit 45.1 % (37.0-47.0); Hemoglobin 14.4 g/dL (12.2-16.2); Lymphocytes # 1.1 K/mm3 (0.7-4.5); Lymphocytes % 12.7 % (10-50); Mean Corpuscular HGB Conc 31.9 g/dL (31.8-35.4); Mean Corpuscular Hemoglobin 30.6 pg (27.0-31.2); Mean Corpuscular Volume 95.8 fl (81-99); Mean Platelet Volume 10.7 fl (7.4-10.4); Monocytes # 0.5 K/mm3 (0.1-1.0); Monocytes % 5.4 % (1.7-9.3); Neutrophils # 7.1 K/mm3 (1.8-7.8); Neutrophils % 80.3 % (37.0-80.0); Platelet Count 238 K/mm3 (142-424); Red Blood Count 4.71 M/mm3 (4.20-5.40); White Blood Count 8.9 K/mm3 (4.8-10.8)
[2024-07-24 19:38] LABS: Albumin Level 4.6 g/dl (3.5-5.0); Chloride 101 mmol/L (98-107)
[2024-07-24 19:39] LABS: Potassium 4.4 mmoL/L (3.5-5.1); Sodium 141 mmol/L (136-145)
[2024-07-24 19:41] LABS: Alanine Aminotransferase 31 U/L (12-78); Anion Gap 12.4 mEq/L (5-15); Aspartate Amino Transferase 36 U/L (14-36); Blood Urea Nitrogen 15 mg/dl (7-17); Carbon Dioxide 32 mmol/L (22.0-30.0); Estimated Glomerular Filt Rate 83 ml/min (>60); GFR (African American) 100 ML/MIN (>60)
[2024-07-24 19:42] LABS: Alkaline Phosphatase 111 U/L (38-126); Bilirubin,Total 0.5 mg/dl (0.2-1.3); Calcium 9.2 mg/dl (8.4-10.2); Globulin 2.3 g/dL (1.3-3.2); Glucose 101 mg/dl (74-100); Total Protein,Serum 6.9 g/dl (6.3-8.2)
== END 2024-07-24 23:59 | disposition home or self-care (01) ==
LOC: LAB.DROPOF 07-25 15:12
PROVIDERS: PCP Family Medicine; Visit Provider Family Medicine
DX: J44.9 Chronic obstructive pulmonary disease, unspecified (principal); E78.2 Mixed hyperlipidemia
CPT/HCPCS: 80053; 85025

== ENCOUNTER 2024-08-30 09:13 | Outpatient (CLI) | payer MEDICARE, SELFPAY ==
--- NOTE | 2024-08-30 09:20 | XR_ITS ---
FINAL REPORT CLINICAL HISTORY: lt knee pain, nki COMPARISON: 09/23/2020 FINDINGS: AP, lateral and oblique views of the left knee were obtained. There is deformity of the medial femoral condyle, old osteochondral lesion is not excluded. There is no acute osseous abnormality of the left knee. There is tricompartmental degenerative joint disease. Joint space narrowing has progressed since the prior exam. The soft tissues are normal. There is no joint effusion. IMPRESSION: Chronic/degenerative changes without acute osseous abnormality of the left knee. Reviewed, Interpreted and Dictated by Loree Jimenez MD Transcribed by Alyson Nance Authenticated and [facility]
--- NOTE | 2024-08-30 09:20 | XR_ITS ---
FINAL REPORT CLINICAL HISTORY: Rt dorsal Foot pain, nki FINDINGS: AP, oblique and lateral views of the right foot were obtained. No prior exam for comparison. There is no acute fracture or dislocation. Multijoint degenerative disease is most pronounced in the midfoot. Soft tissues are unremarkable. IMPRESSION: Degenerative change without acute osseous abnormality of the right foot. Reviewed, Interpreted and Dictated by Loree Jimenez MD Transcribed by Alyson Nance Authenticated and [facility]
--- NOTE | 2024-08-30 09:20 | XR_ITS ---
FINAL REPORT CLINICAL HISTORY: lt anterior ankle pain, nki FINDINGS: AP, oblique, and lateral views of the left ankle were obtained. No prior exam for comparison. Small calcification adjacent to the medial talus is well-corticated and favored to be chronic. There is no fracture or dislocation. The ankle mortise is intact. Soft tissues are unremarkable. IMPRESSION: No acute osseous abnormality of the left ankle. Reviewed, Interpreted and Dictated by Loree Jimenez MD Transcribed by Alyson Nance Authenticated and [facility]
== END 2024-08-30 23:59 | disposition home or self-care (01) ==
LOC: RAD 09:14
PROVIDERS: PCP Family Medicine; Visit Provider Physician Assistant
DX: M25.562 Pain in left knee (principal); M25.572 Pain in left ankle and joints of left foot; M79.671 Pain in right foot
CPT/HCPCS: 73562; 73610; 73630

== ENCOUNTER 2024-09-05 13:01 | Outpatient (CLI) | payer MEDICARE, SELFPAY ==
--- NOTE | 2024-09-05 13:30 | MM_ITS ---
PROCEDURE INFORMATION: Exam: MG Bilateral Screening 3D Mammography Exam date and time: 09/05/2024 1:15 PM Age: 68 years old Clinical indication: Screening. No family history of breast cancer. TECHNIQUE: Imaging protocol: Bilateral Screening tomosynthesis and 2D mammography including computer-aided detection (CAD) when performed. COMPARISON: 1. MG MM DIG SCREENING MAMM BI W/CAD 09/03/2023 3:47 PM 2. MG MM DIG SCREENING MAMM BI W/CAD 07/20/2022 8:10 AM 3. MG MM DIG SCREENING MAMM BI W/CAD 05/12/2021 4:44 PM 4. MG MM DIG SCREENING MAMM BI W/CAD 01/25/2020 1:02 PM FINDINGS: MAMMOGRAPHY: Breast composition: The breasts are heterogeneously dense, which may obscure small masses. Mass: None. Architectural distortion: None. Calcifications: No suspicious calcifications. Asymmetric density: None. Skin thickening: None. Axillary adenopathy: None. IMPRESSION: No mammographic evidence of malignancy. Annual screening is recommended unless otherwise clinically indicated. ASSESSMENT: BI-RADS Category 1: Negative.
== END 2024-09-05 23:59 | disposition home or self-care (01) ==
LOC: RAD 13:02
PROVIDERS: PCP Family Medicine; Visit Provider Family Medicine
DX: Z12.31 Encounter for screening mammogram for malignant neoplasm of breast (principal)
CPT/HCPCS: 77063; 77067

== ENCOUNTER 2024-10-23 16:40 | Outpatient (CLI) | payer MEDICARE, SELFPAY ==
[2024-10-23 18:31] LABS: Basophils % 0.4 % (0.1-2.0); Eosinophils # 0.1 Kmm3 (0.0-0.4); Eosinophils % 1.4 % (0.1-12.0); Hematocrit 43.6 % (37.0-47.0); Immature Granulocytes # 0.02 10^3uL; Immature Granulocytes % 0.3 %; Lymphocytes # 1.4 K/mm3 (0.7-4.5); Mean Corpuscular HGB Conc 32.1 g/dL (31.8-35.4); Mean Corpuscular Hemoglobin 30.3 pg (27.0-31.2); Mean Corpuscular Volume 94.4 fl (81-99); Mean Platelet Volume 10.7 fl (7.4-10.4); Monocytes # 0.5 K/mm3 (0.1-1.0); Monocytes % 7.2 % (1.7-9.3); Neutrophils # 5.1 K/mm3 (1.8-7.8); Neutrophils % 71.7 % (37.0-80.0); Nucleated Red Blood Cells # 0 10^3/uL; Nucleated Red Blood Cells % 0 %; Platelet Count 240 K/mm3 (142-424); Red Blood Count 4.62 M/mm3 (4.20-5.40); Red Cell Distribution Width 12.8 % (11.5-17.5); Red Cell Distribution Width-SD 44.1 fL; White Blood Count 7.1 K/mm3 (4.8-10.8)
[2024-10-23 20:48] LABS: Chol/HDL Ratio 3.6 (1-3.5); Cholesterol 172 mg/dl (140-200); HDL Cholesterol 48 mg/dl (40-60); Triglycerides 171 mg/dl (30-150); VLDL Cholesterol 34 mg/dL (0-40)
[2024-10-23 21:08] LABS: Direct LDL Cholesterol 88.06 mg/dL (100-129)
== END 2024-10-23 23:59 | disposition home or self-care (01) ==
LOC: LAB.DROPOF 20:29
PROVIDERS: PCP Family Medicine; Visit Provider Family Medicine
DX: E78.5 Hyperlipidemia, unspecified (principal); I10 Essential (primary) hypertension; Z87.891 Personal history of nicotine dependence
CPT/HCPCS: 80061; 85025

== ENCOUNTER 2025-02-22 13:49 | Outpatient (CLI) | payer MEDICARE, SELFPAY ==
[2025-02-22 19:52] LABS: Hematocrit 42.2 % (37.0-47.0); Hemoglobin 13.5 g/dL (12.2-16.2); Immature Granulocytes % 0.3 %; Mean Corpuscular HGB Conc 32.0 g/dL (31.8-35.4); Mean Corpuscular Hemoglobin 30.5 pg (27.0-31.2); Mean Corpuscular Volume 95.5 fl (81-99); Nucleated Red Blood Cells % 0 %; Platelet Count 230 K/mm3 (142-424); Red Blood Count 4.42 M/mm3 (4.20-5.40); Red Cell Distribution Width-SD 44.9 fL; White Blood Count 7.0 K/mm3 (4.8-10.8)
[2025-02-22 20:48] LABS: Albumin Level 4.0 g/dl (3.5-5.0); Chloride 99 mmol/L (98-107); Potassium 4.4 mmoL/L (3.5-5.1); Sodium 139 mmol/L (136-145)
[2025-02-22 20:51] LABS: Alanine Aminotransferase 21 U/L (12-78); Albumin/Globulin Ratio 1.7 (1.1-1.8); Alkaline Phosphatase 78 U/L (38-126); Anion Gap 12.4 mEq/L (5-15); Aspartate Amino Transferase 31 U/L (14-36); Bilirubin,Total 0.4 mg/dl (0.2-1.3); Blood Urea Nitrogen 17 mg/dl (7-17); Calcium 9.1 mg/dl (8.4-10.2); Carbon Dioxide 32 mmol/L (22.0-30.0); Cholesterol 160 mg/dl (140-200); Creatinine,Serum 0.70 mg/dl (0.52-1.04); Estimated Glomerular Filt Rate 82 ml/min (>60); GFR (African American) 100 ML/MIN (>60); Globulin 2.4 g/dL (1.3-3.2); Glucose 128 mg/dl (74-100); Total Protein,Serum 6.4 g/dl (6.3-8.2); Triglycerides 140 mg/dl (30-150)
[2025-02-22 20:52] LABS: HDL Cholesterol 51 mg/dl (40-60)
[2025-02-23 11:14] LABS: Hemoglobin A1C 5.7 % (4.0-6.0)
--- OUTSIDE RECORDS SUMMARY | 2025-02-23 13:29 | XMS_ITS | Clinical Summary ---
Author Organization Healthcare Address [address] [place] [address] Care Team Providers Care Livestock Producer Name Role Phone Dylan Montiel MD Primary Care Provider + [phone] Family History Medical History Relation Name Comments Hypertension Brother Alcohol abuse Father Cardiac disorder Father Diabetes Father Hypertension Father Conversions - Other Mother Colon ca ncer, ascending Depression Mother Hypertension Mother Lung disease Mother Other cancer Mother Hypertension Sister Relation Name Status Comments Brother Father Mother Sister Social History Tobacco Use Types Packs/Day Years Used Date Smoking Tobacco: Former Alcohol Use Standard Drinks/Week Comments Yes 0 (1 standard drink = 0.6 oz pur e alcohol) Comments Unknown Sex and Gender Information Value Date Recorded Sex Assigned at Not on file Legal Sex Female 7:10 PM EDT Gender Identity Not on file Sexual Orientation Not on file Last Filed Vital Signs Vital Sign Reading Time Taken Comments Blood Pressure 138/74 10/04/2018 9:26 AM EDT Pulse 69 10/04/2018 9:26 AM EDT Temperature 36.3 C (97.3 F) 10/04/2018 9:26 AM EDT Respiratory Rate 16 10/04/2018 9:26 AM EDT Oxygen Saturation - - Inhaled Oxygen Concentration - - Weight 84 kg (185 lb 1.9 oz) 10/04/2018 9:26 AM EDT Height 152.4 cm (5') 10/04/2018 9:26 AM EDT Body Mass Index 36.15 10/04/2018 9:26 AM EDT Plan of Treatment Not on file Care Teams Livestock Producer Relationship Specialty Start Date End Date Dylan Montiel MD [address] [place] [address] PCP - General 10/18/20
== END 2025-02-22 23:59 | disposition home or self-care (01) ==
LOC: LAB.DROPOF 02-23 13:27
PROVIDERS: PCP Family Medicine; Visit Provider Family Medicine
DX: J44.9 Chronic obstructive pulmonary disease, unspecified (principal); I10 Essential (primary) hypertension; E78.2 Mixed hyperlipidemia; N39.0 Urinary tract infection, site not specified; R73.09 Other abnormal glucose
CPT/HCPCS: 80053; 80061; 83036; 85025; 87086

== ENCOUNTER 2025-06-05 13:38 | Outpatient (CLI) | payer MEDICARE, SELFPAY ==
--- OUTSIDE RECORDS SUMMARY | 2025-06-05 13:40 | XMS_ITS | CCD ---
Author Organization Unknown Care Team Providers Care Obstetrician/Gynecologist Name Role Phone Unavailable Primary Care Provider Unavailabl e Unavailable Chronic Care Management Unavaila ble Summary Purpose DataExchange Insurance Providers Payer name Policy type / Coverage type Covered constitution party ID Effective Begin Date Effective End Date [facility] [id number] Unknown Unknown Family History Family History data not found Medication Administered No Medication Administered data Reason For Visit No Reason For Visit data Medical Equipment No Medical Equipment data Advance Directives No Advance Directive data
--- OUTSIDE RECORDS SUMMARY | 2025-06-05 13:40 | XMS_ITS | Clinical Summary ---
Author Organization Healthcare Address [address] [place] [address] Care Team Providers Care Manager Of Case Management Name Role Phone Dylan Montiel MD Primary Care Provider + [phone] Family History Medical History Relation Name Comments [...] of Treatment Not on file Care Teams Manager Of Case Management Relationship Specialty Start Date End Date Dylan Montiel MD [address] [place] [address] PCP - General 10/18/20
--- NOTE | 2025-06-05 14:00 | US_ITS ---
FINAL REPORT TECHNIQUE: Sonographic images of the thyroid gland were obtained in the longitudinal and transverse planes. CLINICAL HISTORY: thyroid nodule COMPARISON: 09/22/2022 FINDINGS: The right lobe measures 1.5 x 3.8 x 1.6 cm. A hypoechoic upper pole nodule measures 7 mm, was 7 mm, unchanged. No new nodules are identified. The left lobe measures 2.1 x 4.1 x 2.4 cm. An upper pole spongiform nodule measures 11 mm, was 11 mm, unchanged. A mixed cystic and solid lower pole nodule measures 29 mm, was 31 mm, unchanged. No new nodules identified. The isthmus measures 7 mm. This is normal. IMPRESSION: Stable bilateral thyroid nodules. Continued follow-up recommended. Reviewed, Interpreted and Dictated by Loree Jimenez MD Transcribed by Liana Vallejo Authenticated and . [facility]
== END 2025-06-05 23:59 | disposition home or self-care (01) ==
LOC: RAD 13:39
PROVIDERS: PCP Family Medicine; Visit Provider Family Medicine
DX: E04.2 Nontoxic multinodular goiter (principal)
CPT/HCPCS: 76536